=== PATIENT | female | born 1975 | race Caucasian/White ===

== ENCOUNTER 2023-08-24 13:20 | Emergency (ER) | payer BC, SELFPAY ==
[2023-08-24] VITALS (24 sets, daily range): BP systolic 113–193; BP diastolic 61–101; PULSE 60–112; RESP 7–24; TEMP 36.6–36.7; O2SAT 96–100; BMI 32.8
--- NOTE | 2023-08-24 13:23 | PC.NURSE ---
Dr. Sparks at [facility] for pt eval
--- NOTE | 2023-08-24 13:26 | XR_ITS ---
FINAL REPORT CLINICAL HISTORY: pain, deformity, fall in snow FINDINGS: Left knee Two views were obtained. There is a nondisplaced fracture of the proximal fibula. No other fracture or dislocation is identified. No soft tissue abnormality is seen. IMPRESSION: Fracture as above. Reviewed, Interpreted and Dictated by Isidro Clements III, MD Transcribed by Jing Best Authenticated and [facility]
--- NOTE | 2023-08-24 13:26 | XR_ITS ---
FINAL REPORT CLINICAL HISTORY: pain, fall in snow, deformity FINDINGS: Left ankle Two views were obtained. There is a comminuted fracture of the distal fibular diaphysis. There are also nondisplaced fractures of the posterior distal tibia and probable medial malleolus. There is posterior dislocation of the talus and foot at the tibiotalar joint. IMPRESSION: Fractures as above. Reviewed, Interpreted and Dictated by Isidro Clements III, MD Transcribed by Jing Best Authenticated and . [facility]
--- NOTE | 2023-08-24 13:26 | XR_ITS ---
FINAL REPORT CLINICAL HISTORY: pain, deformity FINDINGS: Left foot Two views were obtained. No foot fracture is identified. There are mild degenerative changes. No soft tissue abnormality is identified. IMPRESSION: No acute process. Reviewed, Interpreted and Dictated by Iisdro Clements III, MD Transcribed by Jing Best Authenticated and [facility]
--- NOTE | 2023-08-24 13:26 | XR_ITS ---
FINAL REPORT CLINICAL HISTORY: pain, deformity, fall in snow FINDINGS: Left tibia fibula Two views were obtained. There is a comminuted fracture of the distal fibular diaphysis. There are also nondisplaced fractures of the posterior distal tibia and probable medial malleolus. There is posterior dislocation of the talus and foot at the tibiotalar joint. Nondisplaced fracture of the proximal fibula is also identified. IMPRESSION: Fractures as above. Reviewed, Interpreted and Dictated by Isidro Clements III, MD Transcribed by Jing Best Authenticated and [facility]
[2023-08-24] MEDS: FENTANYL 250MCG/5ML VIAL 100 MCG IV (13:30)
[2023-08-24] MEDS: ONDANSETRON 4MG/2ML VIAL 4 MG IV (13:30)
--- NOTE | 2023-08-24 13:59 | ED_ITS ---
Discharge Plan Disposition Patient Disposition: Home, Self-Care Condition: Good Prescriptions Prescriptions: New oxycodone 5 mg tablet 5 mg PO Q6H PRN (Reason: pain) Qty: 10 0RF Referrals Follow up/Referrals: Willy Quezada DO [Staff Physician] - See instructions Marck Barrera DO [Staff Physician] - See instructions Provider,MD Kassidy [Primary Care Provider] - See instructions Activity Restrictions/Add. Instructions Additional Instructions/Restrictions: Call your family doctor to establish care for this visit to the emergency department and schedule follow-up within 48 hours to ensure improvement. If you have any worsening of your condition or any other concerning signs or symptoms, return to the emergency department or your primary care doctor for further evaluation. Call Dr. Vera's office for further scheduling of surgery. Clinical Impressions Clinical Impression: Closed fracture dislocation of left ankle Stand Alone Forms Stand Alone Forms: Work/School Release Instructions Patient Instructions: DI for Moderate Sedation, Moderate Sedation Discharge ED Provider: Chiki Arellano General Adult HPI <Donald Sparks MD - Last Filed: 08/24/23 17:10> General Chief complaint: Fall Stated complaint: ankle injury Time Seen by Provider: 08/24/23 13:26 Mode of Arrival: Wheelchair Source of Information: Patient and Spouse Limitations: No Limitations Description of Symptoms (Recalled from ER Triage Doc. by RN): pt reports to ED with c/o fall. pt reports she was walking out of her house and slippped on the snow/ice and landed on her ankle wrong. pt reports she looked down and say her ankle twisted out beside of her. History of Present Illness HPI narrative: Patient presents after fall from standing shortly prior to arrival. She slipped on the ice and fell onto her left ankle. She is unsure if she had inversion or eversion injury. She denies any previous ankle injuries. The pain is severe and nonradiating. She denies any numbness or tingling. She denies any pain elsewhere. She denies blood thinner usage. She denies head injury. Related Data Previous Rx's Medication Instructions Recorded oxycodone 5 mg tablet 5 mg PO Q6H PRN pain #10 tabs 08/24/23 Allergies Allergy/AdvReac Type Severity Reaction Status Date / Time Penicillins Allergy Verified 08/24/23 13:46 PFSH <Donald Sparks MD - Last Filed: 08/24/23 17:10> [facility] Disclaimer: The information contained in this section may have been updated after the patient was seen, as this information can be updated by other users. Social History (Updated 08/24/23 @ 16:38 by Chiki Arellano MD) Smoking Status: Current every day smoker alcohol intake: never current occupational status: employed Travel in the last 8 weeks: None <Donald Sparks MD - Last Filed: 08/24/23 17:10> ROS Obtained: Yes Systems reviewed as appropriate & no additional complaints except as documented As per HPI Physical Exam <Donald Sparks MD - Last Filed: 08/24/23 17:10> General General appearance: alert and in no apparent distress Head Head exam: atraumatic and normocephalic Eye Eye exam: Present normal appearance Neck Neck exam: Present normal inspection Chest Chest inspection: Present normal inspection and symmetric chest wall rise Respiratory Respiratory exam: Present normal lung sounds bilaterally; Absent respiratory distress Cardiovascular Cardiovascular exam: Present regular rate and normal rhythm Abdominal Exam Abdominal exam: Present soft Extremities Exam Extremities exam: Present other (Closed injury with deformity and skin tenting to left lower extremity, ankle. Distal sensation and capillary refill, DP pulse intact. No evidence of trauma elsewhere.) Neurological Exam Neurological exam: Present alert and oriented X3 Psychiatric Psychiatric exam: Present normal affect and normal mood Skin Skin exam: Present warm and dry Medical Decision Making <Donald Sparks MD - Last Filed: 08/24/23 17:10> Medical Records Medical records reviewed: Yes I reviewed the patient's medical records. Jimmy Inquiry Pt receiving controlled substance: No Vital Signs: 08/24/23 13:20 08/24/23 14:15 08/24/23 14:31 Temperature 97.9 F Temperature Source Oral Pulse Rate 60 67 Pulse Rate [Left Radial] 62 Respiratory Rate 19 Blood Pressure 113/64 Blood Pressure [Right Arm] 123/71 Blood Pressure Mean 87 Blood Pressure Mean [Right Arm] 88 02 Sat by Pulse Oximetry 100 98 98 Oxygen Delivery Method Room Air Nasal Cannula Oxygen Flow Rate (LPM) 1 08/24/23 15:01 08/24/23 15:15 08/24/23 15:21 Temperature 98.0 F Temperature Source Oral Pulse Rate Pulse Rate [Left Radial] 66 81 104 H Respiratory Rate 12 16 16 Blood Pressure Blood Pressure [Right Arm] 122/76 134/71 179/94 H Blood Pressure Mean Blood Pressure Mean [Right Arm] 91 92 122 02 Sat by Pulse Oximetry 100 99 99 Oxygen Delivery Method Nasal Cannula Nasal Cannula Nasal Cannula Oxygen Flow Rate (LPM) 1 1 1 08/24/23 15:30 08/24/23 15:35 08/24/23 15:41 Temperature Temperature Source Pulse Rate Pulse Rate [Left Radial] 101 H 93 H 89 Respiratory Rate 7 L 13 12 Blood Pressure Blood Pressure [Right Arm] 179/98 H 156/101 H 159/76 H Blood Pressure Mean Blood Pressure Mean [Right Arm] 125 119 103 02 Sat by Pulse Oximetry 98 99 99 Oxygen Delivery Method Nasal Cannula Nasal Cannula Nasal Cannula Oxygen Flow Rate (LPM) 1 1 1 08/24/23 15:48 08/24/23 15:04 08/24/23 15:10 Temperature Temperature Source Pulse Rate 68 73 Pulse Rate [Left Radial] 85 Respiratory Rate 10 L 13 13 Blood Pressure 122/76 132/74 Blood Pressure [Right Arm] 129/76 Blood Pressure Mean Blood Pressure Mean [Right Arm] 93 02 Sat by Pulse Oximetry 99 100 100 Oxygen Delivery Method Room Air Room Air Room Air Oxygen Flow Rate (LPM) 08/24/23 15:14 08/24/23 15:15 08/24/23 15:21 Temperature Temperature Source Pulse Rate 68 80 106 H Pulse Rate [Left Radial] Respiratory Rate 12 13 13 Blood Pressure 134/73 134/71 179/94 H Blood Pressure [Right Arm] Blood Pressure Mean Blood Pressure Mean [Right Arm] 02 Sat by Pulse Oximetry 100 100 99 Oxygen Delivery Method Oxygen Flow Rate (LPM) 08/24/23 15:25 08/24/23 15:30 08/24/23 15:35 Temperature Temperature Source Pulse Rate 112 H 96 H 83 Pulse Rate [Left Radial] Respiratory Rate 13 13 14 Blood Pressure 193/92 H 179/98 H 156/101 H Blood Pressure [Right Arm] Blood Pressure Mean Blood Pressure Mean [Right Arm] 02 Sat by Pulse Oximetry 100 100 99 Oxygen Delivery Method Oxygen Flow Rate (LPM) 08/24/23 15:41 08/24/23 15:47 08/24/23 15:50 Temperature Temperature Source Pulse Rate 92 H 85 79 Pulse Rate [Left Radial] Respiratory Rate 14 12 13 Blood Pressure 159/76 H 129/76 131/81 Blood Pressure [Right Arm] Blood Pressure Mean Blood Pressure Mean [Right Arm] 02 Sat by Pulse Oximetry 99 99 98 Oxygen Delivery Method Oxygen Flow Rate (LPM) 08/24/23 15:55 08/24/23 16:00 08/24/23 16:05 Temperature Temperature Source Pulse Rate 77 74 75 Pulse Rate [Left Radial] Respiratory Rate 13 12 13 Blood Pressure 128/70 135/75 131/72 Blood Pressure [Right Arm] Blood Pressure Mean Blood Pressure Mean [Right Arm] 02 Sat by Pulse Oximetry 100 100 100 Oxygen Delivery Method Oxygen Flow Rate (LPM) 08/24/23 16:11 08/24/23 16:15 08/24/23 16:20 Temperature Temperature Source Pulse Rate 76 78 81 Pulse Rate [Left Radial] Respiratory Rate 16 13 24 Blood Pressure 118/61 126/71 123/67 Blood Pressure [Right Arm] Blood Pressure Mean Blood Pressure Mean [Right Arm] 02 Sat by Pulse Oximetry 100 97 96 Oxygen Delivery Method Oxygen Flow Rate (LPM) 08/24/23 16:25 08/24/23 16:49 Temperature 97.9 F Temperature Source Pulse Rate 86 86 Pulse Rate [Left Radial] Respiratory Rate 15 15 Blood Pressure 130/69 130/69 Blood Pressure [Right Arm] Blood Pressure Mean Blood Pressure Mean [Right Arm] 02 Sat by Pulse Oximetry 99 Oxygen Delivery Method Room Air Oxygen Flow Rate (LPM) Lab Data Lab Results 08/24/23 13:25: WBC 12.4 H, RBC 4.61, Hgb 14.5, Hct 44.5, MCV 96.6, MCH 31.6 H, MCHC 32.7, RDW 13.7, Plt Count 277, MPV 11.7 H, Neut % (Auto) 48.3, Lymph % (Auto) 41.1, [place] % (Auto) 6.1, Eos % (Auto) 3.6, Baso % (Auto) 0.9, Neut # ( Auto) 6.0, Lymph # (Auto) 5.1 H, [place] # (Auto) 0.8, Eos # (Auto) 0.5 H, Baso # (Auto) 0.1, PT 10.2, INR 0.94, Sodium 138, Potassium 3.1 L, Chloride 105, Carbon Dioxide 20 L, Anion Gap 16.1 H, BUN 15, Creatinine 0.90, Estimated Creat Clear 117, Estimated GFR 67, Est GFR ( Amer) 82, Glucose 141 H, Calcium 8.8, Total Bilirubin 0.6, AST 39 H, ALT 32, Alkaline Phosphatase 72, Total Creatine Kinase 255 H, Total Protein 7.4, Albumin 4.4, Globulin 3.0, Albumin/Globulin Ratio 1.5 08/24/23 16:10: Total Creatine Kinase 207 H 08/24/23 13:25 08/24/23 13:25 Orders (Tests/Meds): ED MEDICATIONS Discontinued Medications Generic Name Dose Route Start Last Admin Trade Name Freq PRN Reason Stop Dose Admin Fentanyl Citrate 100 mcg 08/24/23 13:26 08/24/23 13:30 Fentanyl 250mcg/5ml Vial IV 08/24/23 13:27 100 mcg ONCE ONE Administration Ketamine HCl 150 mg 08/24/23 15:14 08/24/23 15:57 Ketamine 500mg/10ml Vial IV 08/24/23 15:15 150 mg ONCE ONE Administration Ondansetron HCl 4 mg 08/24/23 13:26 08/24/23 13:30 Ondansetron 4mg/2ml Vial IV 08/24/23 13:27 4 mg ONCE ONE Administration Propofol 50 mg 08/24/23 15:15 08/24/23 15:56 Propofol 10mg/Ml 20ml Vial IV 08/24/23 15:16 50 mg ONCE ONE Administration ORDERS Category Date Time Status Type and Screen Stat BBK 08/24/23 16:10 Results XR ankle LT 2V Stat Exams 08/24/23 13:26 Completed XR ankle LT min 3V Stat Exams 08/24/23 15:42 Completed XR foot LT 2V Stat Exams 08/24/23 13:26 Completed XR knee LT 2V Stat Exams 08/24/23 13:26 Completed XR tibia fibula LT 2V Stat Exams 08/24/23 13:26 Completed CBC w/Auto Diff [Complete Blood Count Auto Diff] Stat Lab 08/24/23 13:25 Completed CK [Creatine Kinase] Stat Lab 08/24/23 13:25 Completed CK [Creatine Kinase] Stat Lab 08/24/23 16:10 Completed CMP [Comprehensive Metabolic Panel] Stat Lab 08/24/23 13:25 Completed PT INR [Prothrombin Time INR] Stat Lab 08/24/23 13:25 Completed Medical Decision Narrative: Patient with history and exam per above presenting for evaluation of left ankle injury Diagnoses considered include Fracture, soft tissue injury, vascular injury, nerve injury ED workup and treatment included: ED MEDICATIONS Discontinued Medications Generic Name Dose Route Start Last Admin Trade Name Radha PRN Reason Stop Dose Admin Fentanyl Citrate 100 mcg 08/24/23 13:26 08/24/23 13:30 Fentanyl 250mcg/5ml Vial IV 08/24/23 13:27 100 mcg ONCE ONE Administration Ketamine HCl 150 mg 08/24/23 15:14 08/24/23 15:57 Ketamine 500mg/10ml Vial IV 08/24/23 15:15 150 mg ONCE ONE Administration Ondansetron HCl 4 mg 08/24/23 13:26 08/24/23 13:30 Ondansetron 4mg/2ml Vial IV 08/24/23 13:27 4 mg ONCE ONE Administration Propofol 50 mg 08/24/23 15:15 08/24/23 15:56 Propofol 10mg/Ml 20ml Vial IV 08/24/23 15:16 50 mg ONCE ONE Administration ORDERS Category Date Time Status Type and Screen Stat BBK 08/24/23 16:10 Results XR ankle LT 2V Stat Exams 08/24/23 13:26 Completed XR ankle LT min 3V Stat Exams 08/24/23 15:42 Completed XR foot LT 2V Stat Exams 08/24/23 13:26 Completed XR knee LT 2V Stat Exams 08/24/23 13:26 Completed XR tibia fibula LT 2V Stat Exams 08/24/23 13:26 Completed CBC w/Auto Diff [Complete Blood Count Auto Diff] Stat Lab 08/24/23 13:25 Completed CK [Creatine Kinase] Stat Lab 08/24/23 13:25 Completed CK [Creatine Kinase] Stat Lab 08/24/23 16:10 Completed CMP [Comprehensive Metabolic Panel] Stat Lab 08/24/23 13:25 Completed PT INR [Prothrombin Time INR] Stat Lab 08/24/23 13:25 Completed Labs were independently interpreted by me, significant for suspected reactive leukocytosis, mild hypokalemia, initial CK elevated, delta CK pending Imaging was independently visualized and interpreted by me, significant for tibia dislocation and fibular fracture. Please refer to radiology report for full details. I discussed the case with orthopedic surgeon on-call. Patient will likely require operative intervention but recommendation at this time is fracture reduction under procedural sedation, splint, and outpatient follow-up. Procedur al sedation was performed and fracture was reduced without immediate complication. This was performed in conjunction with oncoming physician Dr. Arellano. At this time care was transferred to him Eileen: I assume primary responsibility for this patient after signout from previous physician. On reevaluation, patient neurovascularly intact and pain- free. Repeat x-rays with mild subluxation of tibiotalar joint, but patient without signs of neurovascular compromise. Patient has follow-up with o rthopedics for operative intervention. Because patient at baseline without signs or symptoms of clinical decompensation, deemed appropriate for discharge. Results were relayed to patient who voiced understanding and were agreeable to outpatient management and follow up. At the time of discharge the patient was hemodynamically stable, tolerating PO, and mobilizing appropriately. <Chiki Arellano MD - Last Filed: 08/24/23 16:38> Vital Signs: 08/24/23 13:20 08/24/23 14:15 08/24/23 14:31 Temperature 97.9 F Temperature Source Oral Pulse Rate 60 67 Pulse Rate [Left Radial] 62 Respiratory Rate 19 Blood Pressure 113/64 Blood Pressure [Right Arm] 123/71 Blood Pressure Mean 87 Blood Pressure Mean [Right Arm] 88 02 Sat by Pulse Oximetry 100 98 98 Oxygen Delivery Method Room Air Nasal Cannula Oxygen Flow Rate (LPM) 1 08/24/23 15:01 08/24/23 15:15 08/24/23 15:21 Temperature 98.0 F Temperature Source Oral Pulse Rate Pulse Rate [Left Radial] 66 81 104 H Respiratory Rate 12 16 16 Blood Pressure Blood Pressure [Right Arm] 122/76 134/71 179/94 H Blood Pressure Mean Blood Pressure Mean [Right Arm] 91 92 122 02 Sat by Pulse Oximetry 100 99 99 Oxygen Delivery Method Nasal Cannula Nasal Cannula Nasal Cannula Oxygen Flow Rate (LPM) 1 1 1 08/24/23 15:30 08/24/23 15:35 08/24/23 15:41 Temperature Temperature Source Pulse Rate Pulse Rate [Left Radial] 101 H 93 H 89 Respiratory Rate 7 L 13 12 Blood Pressure Blood Pressure [Right Arm] 179/98 H 156/101 H 159/76 H Blood Pressure Mean Blood Pressure Mean [Right Arm] 125 119 103 02 Sat by Pulse Oximetry 98 99 99 Oxygen Delivery Method Nasal Cannula Nasal Cannula Nasal Cannula Oxygen Flow Rate (LPM) 1 1 1 08/24/23 15:48 08/24/23 15:04 08/24/23 15:10 Temperature Temperature Source Pulse Rate 68 73 Pulse Rate [Left Radial] 85 Respiratory Rate 10 L 13 13 Blood Pressure 122/76 132/74 Blood Pressure [Right Arm] 129/76 Blood Pressure Mean Blood Pressure Mean [Right Arm] 93 02 Sat by Pulse Oximetry 99 100 100 Oxygen Delivery Method Room Air Room Air Room Air Oxygen Flow Rate (LPM) 08/24/23 15:14 08/24/23 15:15 08/24/23 15:21 Temperature Temperature Source Pulse Rate 68 80 106 H Pulse Rate [Left Radial] Respiratory Rate 12 13 13 Blood Pressure 134/73 134/71 179/94 H Blood Pressure [Right Arm] Blood Pressure Mean Blood Pressure Mean [Right Arm] 02 Sat by Pulse Oximetry 100 100 99 Oxygen Delivery Method Oxygen Flow Rate (LPM) 08/24/23 15:25 08/24/23 15:30 08/24/23 15:35 Temperature Temperature Source Pulse Rate 112 H 96 H 83 Pulse Rate [Left Radial] Respiratory Rate 13 13 14 Blood Pressure 193/92 H 179/98 H 156/101 H Blood Pressure [Right Arm] Blood Pressure Mean Blood Pressure Mean [Right Arm] 02 Sat by Pulse Oximetry 100 100 99 Oxygen Delivery Method Oxygen Flow Rate (LPM) 08/24/23 15:41 08/24/23 15:47 08/24/23 15:50 Temperature Temperature Source Pulse Rate 92 H 85 79 Pulse Rate [Left Radial] Respiratory Rate 14 12 13 Blood Pressure 159/76 H 129/76 131/81 Blood Pressure [Right Arm] Blood Pressure Mean Blood Pressure Mean [Right Arm] 02 Sat by Pulse Oximetry 99 99 98 Oxygen Delivery Method Oxygen Flow Rate (LPM) 08/24/23 15:55 08/24/23 16:00 08/24/23 16:05 Temperature Temperature Source Pulse Rate 77 74 75 Pulse Rate [Left Radial] Respiratory Rate 13 12 13 Blood Pressure 128/70 135/75 131/72 Blood Pressure [Right Arm] Blood Pressure Mean Blood Pressure Mean [Right Arm] 02 Sat by Pulse Oximetry 100 100 100 Oxygen Delivery Method Oxygen Flow Rate (LPM) 08/24/23 16:11 08/24/23 16:15 08/24/23 16:20 Temperature Temperature Source Pulse Rate 76 78 81 Pulse Rate [Left Radial] Respiratory Rate 16 13 24 Blood Pressure 118/61 126/71 123/67 Blood Pressure [Right Arm] Blood Pressure Mean Blood Pressure Mean [Right Arm] 02 Sat by Pulse Oximetry 100 97 96 Oxygen Delivery Method Oxygen Flow Rate (LPM) 08/24/23 16:25 08/24/23 16:49 Temperature 97.9 F Temperature Source Pulse Rate 86 86 Pulse Rate [Left Radial] Respiratory Rate 15 15 Blood Pressure 130/69 130/69 Blood Pressure [Right Arm] Blood Pressure Mean Blood Pressure Mean [Right Arm] 02 Sat by Pulse Oximetry 99 Oxygen Delivery Method Room Air Oxygen Flow Rate (LPM) Lab Data Lab Results 08/24/23 13:25: WBC 12.4 H, RBC 4.61, Hgb 14.5, Hct 44.5, MCV 96.6, MCH 31.6 H, MCHC 32.7, RDW 13.7, Plt Count 277, MPV 11.7 H, Neut % (Auto) 48.3, Lymph % (Auto) 41.1, [place] % (Auto) 6.1, Eos % (Auto) 3.6, Baso % (Auto) 0.9, Neut # (Auto) 6.0, Lymph # (Auto) 5.1 H, [place] # (Auto) 0.8, Eos # (Auto) 0.5 H, Baso # (Auto) 0.1, PT 10.2, INR 0.94, Sodium 138, Potassium 3.1 L, Chloride 105, Carbon Dioxide 20 L, Anion Gap 16.1 H, BUN 15, Creatinine 0.90, Estimated Creat Clear 117, Estimated GFR 67, Est GFR ( Amer) 82, Glucose 141 H, Calcium 8.8, Total Bilirubin 0.6, AST 39 H, ALT 32, Alkaline Phosphatase 72, Total Creatine Kinase 255 H, Total Protein 7.4, Albumin 4.4, Globulin 3.0, Albumin/Globulin Ratio 1.5 08/24/23 16:10: Total Creatine Kinase 207 H Orders (Tests/Meds): ED MEDICATIONS Discontinued Medications Generic Name Dose Route Start Last Admin Trade Name Freq PRN Reason Stop Dose Admin Fentanyl Citrate 100 mcg 08/24/23 13:26 08/24/23 13:30 Fentanyl 250mcg/5ml Vial IV 08/24/23 13:27 100 mcg ONCE ONE Administration Ketamine HCl 150 mg 08/24/23 15:14 08/24/23 15:57 Ketamine 500mg/10ml Vial IV 08/24/23 15:15 150 mg ONCE ONE Administration Ondansetron HCl 4 mg 08/24/23 13:26 08/24/23 13:30 Ondansetron 4mg/2ml Vial IV 08/24/23 13:27 4 mg ONCE ONE Administration Propofol 50 mg 08/24/23 15:15 08/24/23 15:56 Propofol 10mg/Ml 20ml Vial IV 08/24/23 15:16 50 mg ONCE ONE Administration ORDERS Category Date Time Status Type and Screen Stat BBK 08/24/23 16:10 Results XR ankle LT 2V Stat Exams 08/24/23 13:26 Completed XR ankle LT min 3V Stat Exams 08/24/23 15:42 Completed XR foot LT 2V Stat Exams 08/24/23 13:26 Completed XR knee LT 2V Stat Exams 08/24/23 13:26 Completed XR tibia fibula LT 2V Stat Exams 08/24/23 13:26 Completed CBC w/Auto Diff [Complete Blood Count Auto Diff] Stat Lab 08/24/23 13:25 Completed CK [Creatine Kinase] Stat Lab 08/24/23 13:25 Completed CK [Creatine Kinase] Stat Lab 08/24/23 16:10 Completed CMP [Comprehensive Metabolic Panel] Stat Lab 08/24/23 13:25 Completed PT INR [Prothrombin Time INR] Stat Lab 08/24/23 13:25 Completed Medical Decision Narrative: Patient with history and exam per above presenting for evaluation of Diagnoses considered include ED workup and treatment included: Labs were independently interpreted by me, significant for Imaging was independently visualized and interpreted by me, significant for . Please refer to radiology report for full details. My clinical impression at this time is most consistent with I discussed my clinical impression with patient and answered all questions. At this time, the evidence for any other entities in the differential is insufficient to warrant any further testing or ED observation. This was explained to the patient. The patient was advised that persistent or worsening symptoms require further evaluation. I confirmed the patient's understanding of this discussion. Eileen: I assume primary responsibility for this patient after signout from previous physician. On reevaluation, patient neurovascularly intact and pain- free. Repeat x-rays with mild subluxation of tibiotalar joint, but patient without signs of neurovascular compromise. Patient has follow-up with orthopedics for operative intervention. Because patient at baseline without signs or symptoms of clinical decompensation, deemed appropriate for discharge. Results were relayed to patient who voiced understanding and were agreeable to outpatient management and follow up. At the time of discharge the patient was hemodynamically stable, tolerating PO, and mobilizing appropriately. Procedures <Donald Sparks MD - Last Filed: 08/24/23 17:10> Orthopedic Fracture Reduction Fracture #1: Time Out Performed: Yes Side: left Fracture Reduction Location: tibia and fibula Analgesia: procedural sedation Technique: direct manipulation and traction/counter-traction Post Reduction X-rays Demonstrate: acceptable reduction Post-reduction neuro exam: intact Post-reduction vascular exam: intact Splint Applied: Yes Patient Tolerated Procedure: well and no complications <Chiki Arellano MD - Last Filed: 08/24/23 16:38> Procedural Sedation A heart and lung assessment was performed on this patient at: 14:00 Mallampati Score:: Class II Indication: fracture/dislocation reduction ASA Class: II Time of Last PO Intake: 12:00 Preparation: cardiac monitor technician applied, pulse oximeter, capnometry used and supplemental O2 applied Ketamine: IM Ketamine dose (mg): 150 IV Propofol dose (mg): 50 Patient Tolerated Procedure: well Complications: none Critical Care <oDnald Sparks MD - Last Filed: 08/24/23 17:10> Critical Care Time Critical Care Time: No
[2023-08-24 14:07] LABS: Chloride 105 mmol/L (98-107); Potassium 3.1 mmoL/L (3.5-5.1); Sodium 138 mmol/L (136-145)
[2023-08-24 14:08] LABS: Basophils # 0.1 K/mm3 (0-0.2); Basophils % 0.9 % (0.1-2.0); Eosinophils # 0.5 K/mm3 (0.0-0.4); Eosinophils % 3.6 % (0.1-12.0); Hematocrit 44.5 % (37.0-47.0); Hemoglobin 14.5 g/dL (12.2-16.2); Lymphocytes # 5.1 K/mm3 (0.7-4.5); Lymphocytes % 41.1 % (10-50); Mean Corpuscular HGB Conc 32.7 g/dL (31.8-35.4); Mean Corpuscular Hemoglobin 31.6 pg (27.0-31.2); Mean Corpuscular Volume 96.6 fl (81-99); Mean Platelet Volume 11.7 fl (7.4-10.4); Monocytes # 0.8 K/mm3 (0.1-1.0); Monocytes % 6.1 % (1.7-9.3); Neutrophils % 48.3 % (37.0-80.0); Platelet Count 277 K/mm3 (142-424); Red Blood Count 4.61 M/mm3 (4.20-5.40); Red Cell Distribution Width 13.7 % (11.5-17.5); White Blood Count 12.4 K/mm3 (4.8-10.8)
--- NOTE | 2023-08-24 14:08 | PC.NURSE ---
Dr. Sparks speaking with Dr. Quezada
[2023-08-24 14:10] LABS: Alanine Aminotransferase 32 U/L (12-78); Albumin Level 4.4 g/dl (3.5-5.0); Albumin/Globulin Ratio 1.5 (1.1-1.8); Alkaline Phosphatase 72 U/L (38-126); Anion Gap 16.1 mEq/L (5-15); Aspartate Amino Transferase 39 U/L (14-36); Bilirubin,Total 0.6 mg/dl (0.2-1.3); Blood Urea Nitrogen 15 mg/dl (7-17); Calcium 8.8 mg/dl (8.4-10.2); Carbon Dioxide 20 mmol/L (22.0-30.0); Creatine Kinase 255 U/L (30-135); Creatinine Clearance Estimated 117 mL/min (50-200); Estimated Glomerular Filt Rate 67 ml/min (>60); GFR (African American) 82 ML/MIN (>60); Glucose 141 mg/dl (74-100); Total Protein,Serum 7.4 g/dl (6.3-8.2)
[2023-08-24 14:14] LABS: INR 0.94 (0.9-1.1); Prothrombin Time 10.2 seconds (10.1-12.5)
--- NOTE | 2023-08-24 15:12 | PC.NURSE ---
Dr. Arellano, Dr. Sparks, Robert Watkins RN, Yemi Wei RN, Elizabeth Briscoe RN, at for procedure
--- NOTE | 2023-08-24 15:21 | PC.NURSE ---
Dr Arellano asked me to pull another 50 of Ketamine.
--- NOTE | 2023-08-24 15:42 | XR_ITS ---
FINAL REPORT CLINICAL HISTORY: Left ankle post reduction COMPARISON: Earlier same day FINDINGS: LEFT ANKLE: Three views of the left ankle were obtained. There has been interval reduction in the posteriorly dislocated talus and foot. Again noted are fractures of the distal fibula and posterior distal talus. There is no soft tissue abnormality. IMPRESSION: Interval reduction dislocated talus and foot. Fractures of the distal fibula and posterior distal talus. Reviewed, Interpreted and Dictated by Isidro Clements III, MD Transcribed by Alida Stein Authenticated and . [facility]
--- NOTE | 2023-08-24 15:52 | PC.NURSE ---
xray at bs
[2023-08-24] MEDS: PROPOFOL 10MG/ML 20ML VIAL 50 MG IV (15:56)
--- NOTE | 2023-08-24 16:30 | PC.NURSE ---
PT ASSISTED TO BR
[2023-08-24 16:31] LABS: Creatine Kinase 207 U/L (30-135)
--- NOTE | 2023-08-27 10:40 | PC.NURSE ---
Accessed pt chart to complete ortho paper
== END 2023-08-24 16:50 | disposition home or self-care (01) ==
PROVIDERS: Emergency Medicine; Emergency Provider Emergency Medicine
DX: F17.200 Nicotine dependence, unspecified, uncomplicated; W01.0XXA Fall on same level from slipping, tripping and stumbling without subsequent striking against object, initial encounter; S82.832A Other fracture of upper and lower end of left fibula, initial encounter for closed fracture; S82.302A Unspecified fracture of lower end of left tibia, initial encounter for closed fracture; S93.315A Dislocation of tarsal joint of left foot, initial encounter
CPT/HCPCS: 27788; 27825; 73560; 73590; 73600; 73610; 73620; 80053; 82550; 85025; 85610; 86850; 96374; 96375; 99152; 99285; J2405

== ENCOUNTER 2023-09-05 10:55 | Day surgery (SDC) | payer BC, SELFPAY ==
[2023-09-03 13:13] VITALS: BMI 33.2
[2023-09-05] VITALS (10 sets, daily range): BP systolic 122–159; BP diastolic 60–97; PULSE 68–85; RESP 12–18; TEMP 36.4–43; O2SAT 97–100
[2023-09-05] MEDS: LACTATED RINGERS 1000ML 1,000 ML 25 ML IV (12:23)
[2023-09-05 12:50] LABS: Chloride 107 mmol/L (98-107); Potassium 4.4 mmoL/L (3.5-5.1); Sodium 139 mmol/L (136-145)
[2023-09-05 12:53] LABS: Anion Gap 12.4 mEq/L (5-15); Blood Urea Nitrogen 15 mg/dl (7-17); Calcium 9.3 mg/dl (8.4-10.2); Carbon Dioxide 24 mmol/L (22.0-30.0); Creatinine Clearance Estimated 119 mL/min (50-200); Estimated Glomerular Filt Rate 67 ml/min (>60); GFR (African American) 82 ML/MIN (>60); Glucose 105 mg/dl (74-100)
--- NOTE | 2023-09-05 12:54 | ECG_ITS ---
APPROVED REPORT Exam: Resting ECG HR:56 bpm ECG Measurements Heart Rate 56 AXES MD 164 P 15 QRSd 90 QRS 24 QT 439 T 18 QTc 431 Conclusion SINUS BRADYCARDIA BORDERLINE ECG UNCONFIRMED REPORT Electronically signed by : Martín Henson MD 09/05/2023 22:38:30
[2023-09-05 13:08] LABS: Urine Pregnancy, HCG Qual. Negative (Negative)
--- NOTE | 2023-09-05 13:16 | P.PNANES_ITS ---
[facility] Disclaimer: The information contained in this section may have been updated after the patient was seen, as this information can be updated by other users. Medical History Anxiety Depression Hyperlipidemia Surgical History No significant past surgical history Family History Other Family history of acute congestive heart failure Family history of cancer Family history of diabetes mellitus type II Social History Smoking Status: Former smoker alcohol intake: current substance use type: denies use current occupational status: unemployed Travel in the last 8 weeks: None [facility] Anesthesia Checklist Patient Identification Patient Identification: Arm Band Structural Data Admitted From: Home Planned Operative Procedure/s: ORIF Left Ankle Consent for Planned Operative Procedure(s) Verified: Yes Verified Documents: Surgical Consent and History and Physical NPO Status Verified Time NPO: 00:00 Additional verifications Anesthesia Reactions: No Hx Blood Transfusions: No Blood Transfusion Reaction: No Airway Assessment Mallampati Score:: Class II C-Spine Mobility Assessed: Yes TMJ Mobility Assessed: Yes Dentition: Good Dentition Neurological Assessment Level of Consciousness: Awake and Alert Anesthesia Plan Anesthesia Risk discussed: Yes Anesthesia Plan: Verified ASA Class: II Anesthesia Type: General w/block (Left Popliteal/Adductor Canal. Risks/benefits explained. Pt verbalized understanding)
[2023-09-05] MEDS: CLINDAMYCIN PHOSPHATE 900 MG in 0.9 % SODIUM CHLORIDE 50 ML 50 MG IV (15:30)
--- NOTE | 2023-09-05 17:02 | XR_ITS ---
PROCEDURE INFORMATION: Exam: XR Left Ankle Exam date and time: 09/05/2023 5:00 PM Age: 47 years old Clinical indication: Device placement; Joint fixation hardware; Additional info: Orif lt ankle in or TECHNIQUE: Imaging protocol: Radiologic exam of the left ankle. Views: 1 or 2 views. COMPARISON: CR XR ANKLE LT MIN 3V 08/24/2023 3:44 PM FINDINGS: Bones/joints: Surgical fixation hardware in the distal fibula noted. No hardware-related complication noted. Fracture alignment is now near anatomic. Soft tissues: Normal. IMPRESSION: 1. Surgical fixation hardware in the distal fibula noted. No hardware-related complication noted. 2. Fracture alignment is now near anatomic.
--- NOTE | 2023-09-05 17:44 | EXP.OP.NOTE ---
Date of procedure: 09/05/23 Pre-op Diagnosis:: Left ankle bimalleolar ankle fracture with syndesmotic tear (posterior malleolus and lateral malleolus) Post-op Diagnosis:: Same Procedure performed:: Left ankle open reduction internal fixation left bimalleolar ankle fracture without fixation of the posterior malleolus Left ankle syndesmotic repair Surgeon:: Willy Quezada DO Anesthesia: GETA and regional Estimated blood loss (mL): 0 Clinical Note:: Implants Arthrex one third tubular plate with tight rope Operative findings:: See dictation Operative note:: Patient was identified preoperatively left ankle marked with yes and my initials. Underwent a block with anesthesia. Taken the operating suite placed upon the operating bed. General anesthesia ministered airway secured. Left lower extremity was prepped and draped normal sterile fashion. Once prepped and draped final operative timeout performed to identify proper patient procedure and extremity. Everyone involved in the case agreed. There were no counter indications to beginning. Did receive preoperative antibiotics. Marking pen was used to josue the planned incision over the lateral ankle which was identified on the C arm. At the fracture site Esmarch was used to exsanguinate the extremity and pneumatic tourniquet was inflated to 300 mmHg. Skin knife was used incise through skin careful dissection was taken down to identify the fracture site and the hematoma was evacuated. There is a comminuted fracture at the junction of the distal one third middle one third of the fibula. This was a transverse fracture with a butterfly fragment no lag screw was able to be held so pulmonary reduction was performed with a lobster claw and held with a K wire. Plate was selected from the Arthrex one third tubular plate and placed on the bone. Cortical screws were placed proximally and distally. A hole was left distally for future placement of the tight rope. Reduction was confirmed on the AP and lateral views and found to be good. Then I stressed the syndesmosis and there was indeed tearing and widening and syndesmosis therefore the guidewire and the cannulated drill was utilized to pass the tight rope mechanism from the fibula into the tibia for cortexes. Under direct visualization on the x-ray I tighten the tight rope mechanism by sequentially pulling on the tight rope. Once good reduction was performed there is limbs of the string were cut. I then evaluated the ankle for stability flexion extension and also reviewed the x-ray on the lateral view to establish any need for intervention on the posterior malleolus fragment. The posterior malleolar fragment involves less than 20% of the joint and was stable with flexion extension and no ankle instability was noted. Irrigation of the wounds performed deep layers closed with 0 Vicryl subcutaneous 2-0 Vicryl 3-0 nylon the skin sterile dressing placed with a well-padded posterior splint. Patient waken anesthesia taken recovery stable condition. Condition: stable Disposition: PACU Complications:: None apparent
--- NOTE | 2023-09-05 18:01 | P.PNANES_ITS ---
[facility] Anesthesia Record Part I Anesthesia Record I Intake, IV Amount: 1,600 Hydration: Adequate Estimated blood loss (mL): 25 Urine output (mL): 0 Blood Products used (#): none Blood Pressure: 146/96 SaO2: 98 Pulse Rate: 77 Airway Patency: Patent Respiratory Rate: 17 Temperature: 97.7 F Patient is:: Awake (Talking) and Stable Stable to PACU at:: 17:45
--- NOTE | 2023-09-06 15:08 | P.PNANES_ITS ---
[facility] Anesthesia Record Part II Anesthesia Record Part II Discharge Time: 18:09 Destination: Surgical Day Care (OP Surgery) PACU nurse assessment reviewed?: Yes Patient Condition:: Good Anesthesia Complications:: None Swallowing reflex intact?: Yes Airway Patency: Patent Cyanosis?: No Blood Pressure: 141/81 SaO2: 100 Respiratory Rate: 16 Pulse Rate: 73 Temperature: 98.1 F Mental Status: Alert & Oriented Pain level:: 0 Nausea and/or vomitting:: None Intake, IV Amount: 0 Hydration: Adequate
[2023-09-06 15:09] VITALS: BP 141/81; PULSE 73; RESP 16; TEMP 36.7; O2SAT 100
== END 2023-09-05 18:23 | disposition home or self-care (01) ==
PROVIDERS: Visit Provider Orthopaedic Surgery
PROC: (CPT 27814; principal; 2023-09-05 12:45)
DX: S82.842A Displaced bimalleolar fracture of left lower leg, initial encounter for closed fracture (principal); W00.0XXA Fall on same level due to ice and snow, initial encounter
CPT/HCPCS: 27814; 27829; 73600; 76000; 80048; 81025; 93005; 96372; 96374; C1713; C1776; J0736; J2405

== ENCOUNTER 2023-09-20 13:01 | Outpatient (CLI) | payer BC, SELFPAY ==
--- NOTE | 2023-09-20 13:05 | XR_ITS ---
FINAL REPORT CLINICAL HISTORY: left ankle sx COMPARISON: 08/24/2023 FINDINGS: LEFT ANKLE: Three views of the left ankle were obtained. There are interval postoperative changes from ORIF. There is screw plate and screws in the distal fibula. There is improved alignment of the fracture fragments. There has been interval reduction of the tibiotalar dislocation. There is soft tissue swelling. IMPRESSION: Postoperative changes as above. Soft tissue swelling. Reviewed, Interpreted and Dictated by Isidro Clements III, MD Transcribed by Alida Stein Authenticated and [facility]
== END 2023-09-20 23:59 ==
PROVIDERS: Visit Provider Orthopaedic Surgery
DX: S82.892A Other fracture of left lower leg, initial encounter for closed fracture (principal)
CPT/HCPCS: 73610

== ENCOUNTER 2023-10-16 13:38 | Outpatient (CLI) | payer SELFPAY ==
--- NOTE | 2023-10-16 13:44 | XR_ITS ---
FINAL REPORT CLINICAL HISTORY: Lt ankle fx COMPARISON: 08/23/2023 FINDINGS: Left ankle Three views were obtained. There has been interval ORIF of the fibula. Screw plate and multiple screws are present. There is a comminuted fracture of the distal fibula. IMPRESSION: Fracture as above. Reviewed, Interpreted and Dictated by Isidro Clements III, MD Transcribed by Jing Best Authenticated and [facility]
== END 2023-10-16 23:59 ==
LOC: RAD 13:39
PROVIDERS: PCP Physician Assistant; Visit Provider Orthopaedic Surgery
DX: S82.892A Other fracture of left lower leg, initial encounter for closed fracture (principal)
CPT/HCPCS: 73610

== ENCOUNTER 2023-11-13 12:43 | Outpatient (CLI) | payer SELFPAY ==
--- NOTE | 2023-11-13 12:52 | XR_ITS ---
FINAL REPORT CLINICAL HISTORY: lt ankle pain COMPARISON: 10/16/2023 FINDINGS: Left ankle Three views were obtained. There are postoperative changes of the distal tibia and fibula. There is a nondisplaced fracture of the distal fibula. Mild degenerative changes are present. There is soft tissue swelling about the ankle. Findings are stable since previous. IMPRESSION: Postsurgical changes, stable since previous. Reviewed, Interpreted and Dictated by Isidro Clements III, MD Transcribed by Jing Best Authenticated and . [facility]
== END 2023-11-13 23:59 ==
LOC: RAD 12:44
PROVIDERS: PCP Physician Assistant; Visit Provider Orthopaedic Surgery
DX: M25.572 Pain in left ankle and joints of left foot (principal); S82.892A Other fracture of left lower leg, initial encounter for closed fracture
CPT/HCPCS: 73610

== ENCOUNTER 2024-06-14 10:58 | Inpatient (IN) | payer OTHER, SELFPAY ==
[2024-06-14] VITALS (18 sets, daily range): BP systolic 133–153; BP diastolic 75–94; PULSE 80–123; RESP 16–18; TEMP 36.8–37.7; O2SAT 92–99; BMI 35.2
[2024-06-14 11:32] LABS: Basophils # 0.1 K/mm3 (0-0.2); Basophils % 0.5 % (0.1-2.0); Eosinophils # 0.1 K/mm3 (0.0-0.4); Eosinophils % 0.5 % (0.1-12.0); Hematocrit 44.3 % (37.0-47.0); Hemoglobin 15.2 g/dL (12.2-16.2); Lymphocytes # 1.6 K/mm3 (0.7-4.5); Lymphocytes % 6.7 % (10-50); Mean Corpuscular HGB Conc 34.4 g/dL (31.8-35.4); Mean Corpuscular Hemoglobin 30.4 pg (27.0-31.2); Mean Corpuscular Volume 88.3 fl (81-99); Mean Platelet Volume 11.8 fl (7.4-10.4); Monocytes # 1.2 K/mm3 (0.1-1.0); Monocytes % 5.1 % (1.7-9.3); Neutrophils # 20.4 K/mm3 (1.8-7.8); Neutrophils % 87.2 % (37.0-80.0); Platelet Count 236 K/mm3 (142-424); Red Blood Count 5.01 M/mm3 (4.20-5.40); Red Cell Distribution Width 14.5 % (11.5-17.5); White Blood Count 23.3 K/mm3 (4.8-10.8)
[2024-06-14 11:34] LABS: MANUAL DIFFERENTIAL MANUAL DIFFERENTIAL (MANUAL DIFF)
--- NOTE | 2024-06-14 11:37 | [facility].EDGENADL ---
Discharge Plan Disposition Patient Disposition: Admitted Chief Complaint: Abdominal Pain Prescriptions Prescriptions: No Action oxycodone-acetaminophen 5-325 mg tablet 1 tab PO Q6H PRN (Reason: fracture pain) Qty: 36 0RF divalproex 250 mg tablet,delayed release (DR/EC) 250 mg PO BID meclizine 25 mg tablet 25 mg PO Q8H PRN (Reason: vertigo') pantoprazole 40 mg tablet,delayed release (DR/EC) 40 mg PO DAILY escitalopram oxalate 20 mg tablet 20 mg PO DAILY rosuvastatin 10 mg tablet 10 mg PO DAILY hydrocodone-acetaminophen 5-325 mg tablet 1 tab PO Q4H PRN (Reason: post op pain) Qty: 42 0RF Clinical Impressions Clinical Impression: Left tubo-ovarian abscess, Torsion of left ovary Print Language Print Language: Italian Discharge ED Provider: Chiki Arellano General Adult HPI <Hodan Canales MD - Last Filed: 06/14/24 16:09> General Chief complaint: Abdominal Pain Stated complaint: vomiting, abd pain Time Seen by Provider: 06/14/24 11:32 Mode of Arrival: Ambulatory Source of Information: Patient Limitations: No Limitations Description of Symptoms (Recalled from ER Triage Doc. by RN): pt c/o LLQ, RLQ and L groin pain x3d. pt states the pain is worse in her L groin. pt states the pain is severe 10/10 and cramping in nature. pt also c/o N/V/D. pts LMP was 04/20/24, pt states this is typical for her because she has an IUD. pt has a hx of diverticulitis and states this feels the same. pt has been unable to tolerate PO x2d History of Present Illness HPI narrative: Patient is a 48-year-old with past medical history of GERD presents to the emergency department with nausea vomiting and left lower quadrant pain. Pain is 10 out of 10 left lower quadrant similar to the last time she had diverticulitis. Patient last had a stool 24 hours ago. No blood in stool or urine. No dysuria. Patient has vomited 8 times in the last 24 hours nonbloody nonbilious. Has not taken any [id number] nausea vomiting medicine. Patient has been peeing less than normal. No fever or chills. No known sick contacts no chest pain shortness of breath cough congestion. Related Data Home Medications ?Medication ?Instructions ?Recorded ?Confirmed divalproex 250 mg tablet,delayed 250 mg PO BID 09/03/23 11/13/23 release escitalopram oxalate 20 mg tablet 20 mg PO DAILY 09/03/23 11/13/23 meclizine 25 mg tablet 25 mg PO Q8H PRN vertigo' 09/03/23 11/13/23 pantoprazole 40 mg tablet,delayed 40 mg PO DAILY 09/03/23 11/13/23 release rosuvastatin 10 mg tablet 10 mg PO DAILY 09/03/23 11/13/23 Previous Rx's ?Medication ?Instructions ?Recorded oxycodone-acetaminophen 5 mg-325 1 tab PO Q6H PRN fracture pain #36 08/28/23 mg tablet tabs hydrocodone 5 mg-acetaminophen 325 1 tab PO Q4H PRN post op pain #42 09/05/23 mg tablet tabs Allergies Allergy/AdvReac Type Severity Reaction Status Date / Time Penicillins Allergy Other Verified 06/14/24 11:21 [facility] <Hodan Canales MD - Last Filed: 06/14/24 16:09> PFS Disclaimer: The information contained in this section may have been updated after the patient was seen, as this information can be updated by other users. Medical History Anxiety Depression Hyperlipidemia Surgical History No significant past surgical history Family History Other Family history of acute congestive heart failure Family history of cancer Family history of diabetes mellitus type II Social History Smoking Status: Never smoker alcohol intake: current substance use type: denies use current occupational status: unemployed Travel in the last 8 weeks: None <Hodan Canales MD - Last Filed: 06/14/24 16:09> ROS Obtained: Yes All systems reviewed & no additional complaints except as documented Physical Exam <Hodan Canales MD - Last Filed: 06/14/24 16:09> General General appearance: alert Comment: Uncomfortable but in no acute distress Head Head exam: atraumatic and normal inspection Eye Eye exam: Present PERRL; Absent EOMI ENT ENT exam: Present mucous membranes dry Neck Neck exam: Present normal inspection and full ROM Chest Chest inspection: Present normal inspection Respiratory Respiratory exam: Absent respiratory distress or accessory muscle use Cardiovascular Cardiovascular exam: Present tachycardia Abdominal Exam Abdominal exam: Present soft, tenderness (Tenderness left lower quadrant with associated guarding) and guarding Comment: No flank pain Extremities Exam Extremities exam: Present normal capillary refill (Delayed capillary refill) Back Exam Back exam: Present normal inspection; Absent tenderness Neurological Exam Neurological exam: Present alert and oriented X3 Skin Skin exam: Present warm; Absent erythema Medical Decision Making <Hodan Canales MD - Last Filed: 06/14/24 16:09> Medical Records Screening: Per USPSTF and CDC recommendations, given the prevalence of disease in our region, it is our hospital?s policy to screen for HIV and viral Hepatitis for all patients aged 18 and over and those with ongoing risk factors. Jimmy Inquiry Pt receiving controlled substance: No Vital Signs: 06/14/24 11:06 06/14/24 11:10 06/14/24 11:30 Temperature 98.4 F Temperature Source Oral Pulse Rate 123 H 107 H Pulse Rate [Left] 111 H Respiratory Rate 18 Blood Pressure 135/81 153/91 H Blood Pressure [Right Arm] 135/81 Blood Pressure Mean [Right Arm] 99 Blood Pressure Source [Right Arm] Automatic Cuff Blood Pressure Position [Right Arm] Sitting 02 Sat by Pulse Oximetry 97 97 96 Oxygen Delivery Method Room Air 06/14/24 12:00 06/14/24 12:30 06/14/24 13:00 Temperature Temperature Source Pulse Rate 97 H 85 85 Pulse Rate [Left] Respiratory Rate Blood Pressure 146/92 H 134/78 133/81 Blood Pressure [Right Arm] Blood Pressure Mean [Right Arm] Blood Pressure Source [Right Arm] Blood Pressure Position [Right Arm] 02 Sat by Pulse Oximetry 95 94 L 95 Oxygen Delivery Method Room Air 06/14/24 13:30 06/14/24 14:01 06/14/24 14:30 Temperature Temperature Source Pulse Rate 92 H 85 82 Pulse Rate [Left] Respiratory Rate Blood Pressure 151/81 H 146/87 H 151/94 H Blood Pressure [Right Arm] Blood Pressure Mean [Right Arm] Blood Pressure Source [Right Arm] Blood Pressure Position [Right Arm] 02 Sat by Pulse Oximetry 98 96 98 Oxygen Delivery Method Room Air 06/14/24 15:00 06/14/24 15:30 06/14/24 16:00 Temperature Temperature Source Pulse Rate 80 94 H 94 H Pulse Rate [Left] Respiratory Rate Blood Pressure 142/81 H 150/88 H 140/78 Blood Pressure [Right Arm] Blood Pressure Mean [Right Arm] Blood Pressure Source [Right Arm] Blood Pressure Position [Right Arm] 02 Sat by Pulse Oximetry 97 98 99 Oxygen Delivery Method Room Air Room Air Room Air 06/14/24 16:30 06/14/24 17:00 Temperature Temperature Source Pulse Rate 84 85 Pulse Rate [Left] Respiratory Rate Blood Pressure 137/75 138/83 Blood Pressure [Right Arm] Blood Pressure Mean [Right Arm] Blood Pressure Source [Right Arm] Blood Pressure Position [Right Arm] 02 Sat by Pulse Oximetry 95 98 Oxygen Delivery Method Room Air Room Air Lab Data Lab Results 06/14/24 11:02: Urine Color Yellow, Urine Appearance Clear, Urine pH 6.0, Ur Specific [place] >= 1.030, Urine Protein 2+ A, Urine Glucose (UA) Negative, Urine Ketones 1+, Urine Blood 2+ A, Urine Nitrate Negative, Urine Bilirubin Negative, Urine Urobilinogen 1.0, Ur Leukocyte Esterase 1+ A, Urine RBC 5-10, Urine WBC 3-5, Ur Squamous Epith Cells 3-5 06/14/24 11:19: WBC 23.3 H*, RBC 5.01, Hgb 15.2, Hct 44.3, MCV 88.3, MCH 30.4, MCHC 34.4, RDW 14.5, Plt Count 236, MPV 11.8 H, Neut % (Auto) 87.2 H, Lymph % (Auto) 6.7 L, [place] % (Auto) 5.1, Eos % (Auto) 0.5, Baso % (Auto) 0.5, Neut # (Auto) 20.4 H, Lymph # (Auto) 1.6, [place] # (Auto) 1.2 H, Eos # (Auto) 0.1, Baso # (Auto) 0.1, Total Counted 100, Neutrophils % (Manual) 88 H, Lymphocytes % (Manual) 7 L, Monocytes % (Manual) 5, Platelet Estimate Normal, RBC Morphology Normal, Sodium 136, Potassium 4.0, Chloride 105, Carbon Dioxide 18 L, Anion Gap 17.0 H, BUN 12, Creatinine 0.90, Estimated Creat Clear 125, Estimated GFR 67, Est GFR ( Amer) 81, Glucose 193 H, Lactate 1.5, Calcium 9.4, Total Bilirubin 1.3, AST 39 H, ALT 48, Alkaline Phosphatase 114, Total Protein 9.5 H D, Albumin 4.7, Globulin 4.8 H, Albumin/Globulin Ratio 1.0 L, Lipase 57, Serum HCG, Qual Negative, HIV 1&2 Antibody Rapid Nonreactive 06/14/24 11:50: SARS-CoV-2 (PCR) Not detected, Influenza A Untype (PCR) Not detected, Influenza Type B (PCR) Not detected 06/14/24 11:19 06/14/24 11:19 Orders (Tests/Meds): ED MEDICATIONS Generic Name Dose Route Start Last Admin Trade Name Freq PRN Reason Stop Dose Admin Sodium Chloride 10 ml 06/14/24 11:21 06/14/24 18:08 Sodium Chloride 0.9% 10ml Flush Syringe IV 07/14/24 11:20 10 ml NEEDED PRN Administration Maintain IV Site Discontinued Medications Generic Name Dose Route Start Last Admin Trade Name Freq PRN Reason Stop Dose Admin Hydromorphone HCl 0.5 mg 06/14/24 18:05 06/14/24 18:07 Hydromorphone 2mg/Ml Syringe IV 06/14/24 18:06 0.5 mg ONCE ONE Administration Piperacillin Sod/Tazobactam 100 mls @ 200 mls/hr 06/14/24 11:46 06/14/24 12:00 Sod 4.5 gm/ Sodium Chloride IV 06/14/24 12:15 200 mls/hr ONCE ONE Administration Sodium Chloride 3,060 mls @ 1,530 mls/hr 06/14/24 11:56 06/14/24 12:17 Sod Chlor 0.9% 1000ml Bag IV 06/14/24 13:55 1,530 mls/hr .Q2H ONE Administration Iopamidol 75 ml 06/14/24 15:24 06/14/24 15:24 Iopamidol-370 (76%);100ml Bottle IV 06/14/24 15:25 75 ml ONCE ONE Administration Morphine Sulfate 4 mg 06/14/24 11:38 06/14/24 11:44 Morphine 4mg/Ml Syringe IV 06/14/24 11:39 4 mg ONCE ONE Administration Ondansetron HCl 4 mg 06/14/24 11:38 06/14/24 11:44 Ondansetron 4mg/2ml Vial IV 06/14/24 11:39 4 mg ONCE ONE Administration Sodium Chloride 10 ml 06/14/24 15:24 06/14/24 15:24 Sodium Chloride 0.9% 10ml Syr (Rad Only) IV 06/14/24 15:25 10 ml ONCE ONE Administration ORDERS Category Date Time Status CT abdomen pelvis w con Stat Cat Scan 06/14/24 11:39 Completed US transvaginal Stat Exams 06/14/24 16:39 Taken Complete Blood Count Auto Diff Stat Lab 06/14/24 11:19 Completed Comprehensive Metabolic Panel Stat Lab 06/14/24 11:19 Completed HCG Qualitative, Serum Stat Lab 06/14/24 11:19 Completed HIV (1&2) Antibody Rapid Stat Lab 06/14/24 11:19 Completed Hep C Ab with Reflex to RNA Stat Lab 06/14/24 11:19 Received Lactic Acid Stat Lab 06/14/24 11:19 Completed Lipase Stat Lab 06/14/24 11:19 Completed Rapid PCR Covid and Flu A/B Stat Lab 06/14/24 11:50 Completed Trichomonas Vaginalis, ASHKAN Stat Lab 06/14/24 11:02 Received UA [Urinalysis and Microscopic] Stat Lab 06/14/24 11:02 Completed Blood Culture Stat Micro 06/14/24 11:56 Received Urine Culture Stat Micro 06/14/24 11:02 Received Medical Decision Narrative: In summary, this 48-year-old female presents to the emergency department today with left lower quadrant pain nausea vomiting. On initial evaluation patient is tachycardic in pain but no acute distress afebrile saturating appropriately on room air. Differential diagnosis includes but is not limited to diverticulitis intra-abdominal abscess urolithiasis pyelonephritis urinary tract infection tubo-ovarian abscess. Based on these concerns, I ordered CBC with differential, CMP, lipase test nasopharyngeal respiratory swab COVID flu lactate EKG CT abdomen pelvis UA blood culture. ECG personally interpreted demonstrates sinus tachycardia no ST elevation ST depression or T wave inversions concerning for ischemia normal axis. Patient received 30 cc/kg fluid bolus morphine and Zofran for treatment. Zosyn started in the setting of abdominal pain tachycardia and leukocytosis Labs personally reviewed demonstrate leukocytosis bicarb of 18 lactate of 1.5. UA with Hematuria pyuria nitrate negative CT imaging personally interpreted demonstrate mesenteric stranding in the left lower quadrant On reassessment patient has resolution of vomiting and improvement of pain after 4 mg morphine. At 4 PM transfer of care given to Dr. Arellano to follow up final CT read and disposition <Chiki Arellano MD - Last Filed: 06/14/24 18:58> Vital Signs: 06/14/24 11:06 06/14/24 11:10 06/14/24 11:30 Temperature 98.4 F Temperature Source Oral Pulse Rate 123 H 107 H Pulse Rate [Left] 111 H Respiratory Rate 18 Blood Pressure 135/81 153/91 H Blood Pressure [Right Arm] 135/81 Blood Pressure Mean [Right Arm] 99 Blood Pressure Source [Right Arm] Automatic Cuff Blood Pressure Position [Right Arm] Sitting 02 Sat by Pulse Oximetry 97 97 96 Oxygen Delivery Method Room Air 06/14/24 12:00 06/14/24 12:30 06/14/24 13:00 Temperature Temperature Source Pulse Rate 97 H 85 85 Pulse Rate [Left] Respiratory Rate Blood Pressure 146/92 H 134/78 133/81 Blood Pressure [Right Arm] Blood Pressure Mean [Right Arm] Blood Pressure Source [Right Arm] Blood Pressure Position [Right Arm] 02 Sat by Pulse Oximetry 95 94 L 95 Oxygen Delivery Method Room Air 06/14/24 13:30 06/14/24 14:01 06/14/24 14:30 Temperature Temperature Source Pulse Rate 92 H 85 82 Pulse Rate [Left] Respiratory Rate Blood Pressure 151/81 H 146/87 H 151/94 H Blood Pressure [Right Arm] Blood Pressure Mean [Right Arm] Blood Pressure Source [Right Arm] Blood Pressure Position [Right Arm] 02 Sat by Pulse Oximetry 98 96 98 Oxygen Delivery Method Room Air 06/14/24 15:00 06/14/24 15:30 06/14/24 16:00 Temperature Temperature Source Pulse Rate 80 94 H 94 H Pulse Rate [Left] Respiratory Rate Blood Pressure 142/81 H 150/88 H 140/78 Blood Pressure [Right Arm] Blood Pressure Mean [Right Arm] Blood Pressure Source [Right Arm] Blood Pressure Position [Right Arm] 02 Sat by Pulse Oximetry 97 98 99 Oxygen Delivery Method Room Air Room Air Room Air 06/14/24 16:30 06/14/24 17:00 Temperature Temperature Source Pulse Rate 84 85 Pulse Rate [Left] Respiratory Rate Blood Pressure 137/75 138/83 Blood Pressure [Right Arm] Blood Pressure Mean [Right Arm] Blood Pressure Source [Right Arm] Blood Pressure Position [Right Arm] 02 Sat by Pulse Oximetry 95 98 Oxygen Delivery Method Room Air Room Air Lab Data Lab Results 06/14/24 11:02: Urine Color Yellow, Urine Appearance Clear, Urine pH 6.0, Ur Specific [place] >= 1.030, Urine Protein 2+ A, Urine Glucose (UA) Negative, Urine Ketones 1+, Urine Blood 2+ A, Urine Nitrate Negative, Urine Bilirubin Negative, Urine Urobilinogen 1.0, Ur Leukocyte Esterase 1+ A, Urine RBC 5-10, Urine WBC 3-5, Ur Squamous Epith Cells 3-5 06/14/24 11:19: WBC 23.3 H*, RBC 5.01, Hgb 15.2, Hct 44.3, MCV 88.3, MCH 30.4, MCHC 34.4, RDW 14.5, Plt Count 236, MPV 11.8 H, Neut % (Auto) 87.2 H, Lymph % (Auto) 6.7 L, [place] % (Auto) 5.1, Eos % (Auto) 0.5, Baso % (Auto) 0.5, Neut # (Auto) 20.4 H, Lymph # (Auto) 1.6, [place] # (Auto) 1.2 H, Eos # (Auto) 0.1, Baso # (Auto) 0.1, Total Counted 100, Neutrophils % (Manual) 88 H, Lymphocytes % (Manual) 7 L, Monocytes % (Manual) 5, Platelet Estimate Normal, RBC Morphology Normal, Sodium 136, Potassium 4.0, Chloride 105, Carbon Dioxide 18 L, Anion Gap 17.0 H, BUN 12, Creatinine 0.90, Estimated Creat Clear 125, Estimated GFR 67, Est GFR ( Amer) 81, Glucose 193 H, Lactate 1.5, Calcium 9.4, Total Bilirubin 1.3, AST 39 H, ALT 48, Alkaline Phosphatase 114, Total Protein 9.5 H D, Albumin 4.7, Globulin 4.8 H, Albumin/Globulin Ratio 1.0 L, Lipase 57, Serum HCG, Qual Negative, HIV 1&2 Antibody Rapid Nonreactive 06/14/24 11:50: SARS-CoV-2 (PCR) Not detected, Influenza A Untype (PCR) Not detected, Influenza Type B (PCR) Not detected Orders (Tests/Meds): ED MEDICATIONS Generic Name Dose Route Start Last Admin Trade Name Freq PRN Reason Stop Dose Admin Sodium Chloride 10 ml 06/14/24 11:21 06/14/24 18:08 Sodium Chloride 0.9% 10ml Flush Syringe IV 07/14/24 11:20 10 ml NEEDED PRN Administration Maintain IV Site Discontinued Medications Generic Name Dose Route Start Last Admin Trade Name Freq PRN Reason Stop Dose Admin Hydromorphone HCl 0.5 mg 06/14/24 18:05 06/14/24 18:07 Hydromorphone 2mg/Ml Syringe IV 06/14/24 18:06 0.5 mg ONCE ONE Administration Piperacillin Sod/Tazobactam 100 mls @ 200 mls/hr 06/14/24 11:46 06/14/24 12:00 Sod 4.5 gm/ Sodium Chloride IV 06/14/24 12:15 200 mls/hr ONCE ONE Administration Sodium Chloride 3,060 mls @ 1,530 mls/hr 06/14/24 11:56 06/14/24 12:17 Sod Chlor 0.9% 1000ml Bag IV 06/14/24 13:55 1,530 mls/hr .Q2H ONE Administration Iopamidol 75 ml 06/14/24 15:24 06/14/24 15:24 Iopamidol-370 (76%);100ml Bottle IV 06/14/24 15:25 75 ml ONCE ONE Administration Morphine Sulfate 4 mg 06/14/24 11:38 06/14/24 11:44 Morphine 4mg/Ml Syringe IV 06/14/24 11:39 4 mg ONCE ONE Administration Ondansetron HCl 4 mg 06/14/24 11:38 06/14/24 11:44 Ondansetron 4mg/2ml Vial IV 06/14/24 11:39 4 mg ONCE ONE Administration Sodium Chloride 10 ml 06/14/24 15:24 06/14/24 15:24 Sodium Chloride 0.9% 10ml Syr (Rad Only) IV 06/14/24 15:25 10 ml ONCE ONE Administration ORDERS Category Date Time Status CT abdomen pelvis w con Stat Cat Scan 06/14/24 11:39 Completed US transvaginal Stat Exams 06/14/24 16:39 Taken Complete Blood Count Auto Diff Stat Lab 06/14/24 11:19 Completed Comprehensive Metabolic Panel Stat Lab 06/14/24 11:19 Completed HCG Qualitative, Serum Stat Lab 06/14/24 11:19 Completed HIV (1&2) Antibody Rapid Stat Lab 06/14/24 11:19 Completed Hep C Ab with Reflex to RNA Stat Lab 06/14/24 11:19 Received Lactic Acid Stat Lab 06/14/24 11:19 Completed Lipase Stat Lab 06/14/24 11:19 Completed Rapid PCR Covid and Flu A/B Stat Lab 06/14/24 11:50 Completed Trichomonas Vaginalis, ASHKAN Stat Lab 06/14/24 11:02 Received UA [Urinalysis and Microscopic] Stat Lab 06/14/24 11:02 Completed Blood Culture Stat Micro 06/14/24 11:56 Received Urine Culture Stat Micro 06/14/24 11:02 Received Medical Decision Narrative: In summary, this 48-year-old female presents to the emergency department today with left lower quadrant pain nausea vomiting. On initial evaluation patient is tachycardic in pain but no acute distress afebrile saturating appropriately on room air. Differential diagnosis includes but is not limited to diverticulitis intra-abdominal abscess urolithiasis pyelonephritis urinary tract infection tubo-ovarian abscess. Based on these concerns, I ordered CBC with differential, CMP, lipase test nasopharyngeal respiratory swab COVID flu lactate EKG CT abdomen pelvis UA blood culture. ECG personally interpreted demonstrates sinus tachycardia no ST elevation ST depression or T wave inversions concerning for ischemia normal axis. Patient received 30 cc/kg fluid bolus morphine and Zofran for treatment. Zosyn started in the setting of abdominal pain tachycardia and leukocytosis Labs personally reviewed demonstrate leukocytosis bicarb of 18 lactate of 1.5. UA with Hematuria pyuria nitrate negative CT imaging personally interpreted demonstrate mesenteric stranding in the left lower quadrant On reassessment patient has resolution of vomiting and improvement of pain after 4 mg morphine. At 4 PM transfer of care given to Dr. Arellano to follow up final CT read and disposition Eileen: I assumed primary responsibility for this patient after signout from previous physician. On my evaluation, patient obese, appears to be in mild distress rocking in bed, but speaking in full sentences. Abdomen is soft, distended, primarily tender left lower quadrant. No overlying skin changes. I do not appreciate any peritonitis, but patient asking for for pain medications. Dilaudid was ordered. Independent interpretation of workup with leukocytosis 23,000 with neutrophilia. Patient's chemistry otherwise nonactionable. Lipase negative, hCG negative. Urinalysis with protein, blood, but contaminated and low concern for UTI. CT of the abdomen and pelvis was independently interpreted, there is a 4 cm fluid collection in the left adnexa that appears to communicate with the uterus concerning for tubo-ovarian abscess. Ovary appears enlarged. Because of this, transvaginal ultrasound was emergently ordered. Transvaginal ultrasound was independently interpreted and patient has very little flow in the left ovary, significantly enlarged left ovary, especially compared to the right. RESEARCH AND DEVELOPMENT TESTER was contacted and case was discussed, recommended treatment for TOA. Patient has already received Unasyn, doxycycline was added on. RESEARCH AND DEVELOPMENT TESTER would like to admit patient primarily with general surgery consultation. General surgery was consulted and interactive discussion was had, will evaluate and consult on patient. Because patient high risk for clinical decompensation, deemed appropriate for inpatient admission. Results were relayed to patient who voiced understanding and patient was agreeable to inpatient admission and management. Patient was admitted to the hospital for further definitive management. Critical Care <Hodan Canales MD - Last Filed: 06/14/24 16:09> Critical Care Time Critical Care Time: No
--- NOTE | 2024-06-14 11:39 | CT_ITS ---
PROCEDURE INFORMATION: Exam: CT Abdomen And Pelvis With Contrast Exam date and time: 06/14/2024 3:23 PM Age: 48 years old Clinical indication: Abdominal pain; Additional info: Llq pain TECHNIQUE: Imaging protocol: Computed tomography of the abdomen and pelvis with contrast. Radiation optimization: All CT scans at this facility use at least one of these dose optimization techniques: automated exposure control; mA and/or kV adjustment per patient size (includes targeted exams where dose is matched to clinical indication); or iterative reconstruction. Contrast material: ISOVUE; Contrast volume: 75 ml; Contrast route: IV; COMPARISON: No relevant prior studies available. FINDINGS: Liver: Hepatic steatosis. Hepatomegaly 28 cm Gallbladder and biliary ducts: The gallbladder is unremarkable Pancreas: Normal. No ductal dilation. Spleen: Normal. No splenomegaly. Adrenal glands: Normal. No mass. Kidneys and ureters: The left kidney is mildly edematous but this may be secondary to the inflammatory process in the left hemipelvis. Stomach and bowel: There are inflammatory changes between the left psoas and the descending left colon. There is fluid collection in this region measuring 4.2 x 3 cm. This may represent an abscess either secondary to diverticulitis or PID. It is contiguous with inflamed solid structure that measures 4.5 x 3.7 cm series 3, image 93. This could represent inflamed left ovary or left adnexal region. Differential includes torsion .. Appendix: No evidence of appendicitis. Intraperitoneal space: Unremarkable. No free air. No significant fluid collection. Vasculature: Unremarkable. No abdominal aortic aneurysm. Lymph nodes: Unremarkable. No enlarged lymph nodes. Urinary bladder: Unremarkable as visualized. Reproductive: IUD in the uterus Bones/joints: Unremarkable. No acute fracture. Soft tissues: Unremarkable. IMPRESSION: 1. There are inflammatory changes between the left psoas and the descending left colon. There is fluid collection in this region measuring 4.2 x 3 cm. This may represent an abscess either secondary to diverticulitis or PID. It is contiguous with inflamed solid structure that measures 4.5 x 3.7 cm series 3, image 93. This could represent inflamed left ovary or left adnexal region. Differential includes torsion .. 2. The left kidney is mildly edematous but this may be secondary to the inflammatory process in the left hemipelvis.
--- NOTE | 2024-06-14 11:40 | ECG_ITS ---
APPROVED REPORT Exam: Resting ECG HR:107 bpm ECG Measurements Heart Rate 107 AXES OH 146 P 51 QRSd 90 QRS 17 QT 337 T 94 QTc 400 Conclusion SINUS TACHYCARDIA POSSIBLE LEFT ATRIAL ENLARGEMENT [-0.1mV P-WAVE IN V1/V2] NONSPECIFIC ST & T-WAVE ABNORMALITY No STEMI Electronically signed by : EVANGELINA GUTHRIE, 06/15/2024 04:30:17
[2024-06-14] MEDS: ONDANSETRON 4MG/2ML VIAL 4 MG IV ×2 (11:44→20:37)
[2024-06-14] MEDS: MORPHINE 4MG/ML SYRINGE 4 MG IV (11:44)
[2024-06-14 11:56] LABS: Coronavirus 19, PCR Not Detected (NotDetected); Influenza A, PCR Not Detected (NotDetected); Influenza B, PCR Not Detected (NotDetected)
[2024-06-14] MEDS: PIPERACILLIN/TAZO 4.5 GM in 0.9 % SODIUM CHLORIDE 100 ML IV (12:00)
[2024-06-14] MEDS: SODIUM CHLORIDE 1530 ML IV (12:17)
[2024-06-14 12:29] LABS: Chloride 105 mmol/L (98-107)
[2024-06-14 12:30] LABS: Albumin Level 4.7 g/dl (3.5-5.0); Sodium 136 mmol/L (136-145)
[2024-06-14 12:32] LABS: Microscopic, Urine URINE MICROSCOPIC (MICROSCOPIC)
[2024-06-14 12:32] LABS: Blood Urea Nitrogen 12 mg/dl (7-17); Carbon Dioxide 18 mmol/L (22.0-30.0); Creatinine Clearance Estimated 125 mL/min (50-200); Estimated Glomerular Filt Rate 67 ml/min (>60); GFR (African American) 81 ML/MIN (>60)
[2024-06-14 12:33] LABS: Alanine Aminotransferase 48 U/L (12-78); Alkaline Phosphatase 114 U/L (38-126); Aspartate Amino Transferase 39 U/L (14-36); Bilirubin,Total 1.3 mg/dl (0.2-1.3); Calcium 9.4 mg/dl (8.4-10.2); Globulin 4.8 g/dL (1.3-3.2); Glucose 193 mg/dl (74-100); Lipase 57 U/L (23-300); Total Protein,Serum 9.5 g/dl (6.3-8.2)
[2024-06-14 12:34] LABS: Lactic Acid 1.5 mmol/L (0.7-2.1)
[2024-06-14 12:35] LABS: Lymphocytes % 7 % (10-50); Monocytes % 5 % (2-9); Neutrophils % 88 % (42-76); RBC Morphology Normal; Total Cells Counted 100
[2024-06-14 12:36] LABS: Platelet Estimate Normal
[2024-06-14 13:04] LABS: Appearance,Urine CLEAR (Clear); Blood, Urine 2+ (Negative); Color,Urine YELLOW (Yellow); Glucose,Urine (UA) Negative (Negative); Ketones,Urine 1+ (Negative); Leukocyte Esterase,Urine 1+ (Negative); Nitrate,Urine Negative (Negative); Protein,Urine 2+ (Negative); Specific Gravity, Urine >= 1.030 (1.005-1.030)
[2024-06-14 13:13] LABS: Bilirubin,Urine Negative (Negative)
[2024-06-14 13:59] LABS: HCG Qualitative, Serum Negative (Negative)
--- NOTE | 2024-06-14 14:08 | PC.NURSE ---
pt ambulatory to bathroom while IV fluid bags for sepsis bolus are being changed. pt received 2L at this time.
--- NOTE | 2024-06-14 14:22 | PC.NURSE ---
verbal order contract paralegal per dr whitney, stop at 3L for sepsis bolus. Pt did receive 100mL NS with Zosyn abx administration.
[2024-06-14] MEDS: IOPAMIDOL-370 (76%);100ML BOTTLE 75 ML IV (15:24)
[2024-06-14] MEDS: SODIUM CHLORIDE 0.9% 10ML SYR (RAD ONLY) 10 ML IV (15:24)
[2024-06-14 16:21] LABS: HIV (1&2) Antibody Rapid NONREACTIVE (NONREACTIVE)
--- NOTE | 2024-06-14 16:39 | US_ITS ---
PROCEDURE INFORMATION: Exam: US Pelvis Transabdominal, Complete, and US Pelvis Transvaginal, Non-obstetric Exam date and time: 06/14/2024 5:15 PM Age: 48 years old Clinical indication: Pelvic pain; Additional info: Rule out torsion, L toa TECHNIQUE: Imaging protocol: Real-time complete transabdominal and transvaginal pelvic ultrasound (non-obstetric) with image documentation. Transvaginal imaging was used for better evaluation of the endometrium, adnexa, and/or cervix. COMPARISON: CT ABDOMEN PELVIS W CON 06/14/2024 3:23 PM FINDINGS: Uterus: Uterus is normal. Endometrial stripe is normal. Appropriately positioned intrauterine device within the endometrial cavity. Right ovary/adnexa: Ovary is normal. No mass. Vascular flow present. Left ovary/adnexa: Ovary is mildly enlarged. Complex left adnexal structure anteriorly adjacent to the left ovary with intrinsic hypervascularity. Vascular flow present. Intraperitoneal space: Minimal free fluid within the posterior cul-de-sac. Urinary bladder: Normal. IMPRESSION: 1. Mildly enlarged left ovary without definitive findings of torsion as vascular flow is present. 2. Complex left adnexal structure anteriorly adjacent to the left ovary with intrinsic hypervascularity, possibly representing phlegmonous changes or developing abscess, or mass as demonstrated on earlier performed CT.
--- NOTE | 2024-06-14 16:44 | PC.NURSE ---
cctv technician states that sterile instrument technician has been called in.
--- NOTE | 2024-06-14 17:36 | PC.NURSE ---
Pt. to US.
--- NOTE | 2024-06-14 17:44 | PC.NURSE ---
back in room at this time.
--- NOTE | 2024-06-14 17:50 | PC.NURSE ---
Pt. back to room from US.
[2024-06-14] MEDS: HYDROMORPHONE 2MG/ML SYRINGE 0.5 MG IV (18:07)
[2024-06-14] MEDS: SODIUM CHLORIDE 0.9% 10ML FLUSH SYRINGE 10 ML IV (18:08)
--- NOTE | 2024-06-14 18:14 | PC.NURSE ---
speaking with director of agronomy obivett
--- NOTE | 2024-06-14 18:30 | PC.NURSE ---
I notified house of the need for an OB bed for admission.
[2024-06-14] MEDS: DOXYCYCLINE HYCL 100 MG TABLET PO (18:36)
--- NOTE | 2024-06-14 18:54 | PC.NURSE ---
Report called to Antoinette MOORE in OB
--- NOTE | 2024-06-14 19:02 | PC.NURSE ---
Patient arrived to the unit at this time via wheelchair.
--- NOTE | 2024-06-14 19:54 | PC.NURSE ---
Dr. Flowers at bedside evaluating patient and discussing plan of care. Order received for sips & chips diet throughout night to promote bowel rest. MD phoned Dr. Hong to discuss plan of care.
--- NOTE | 2024-06-14 20:08 | PC.NURSE ---
Phoned Dr. Hong to notify of rn assessment, patient most recent VS, pain level, and to obtain orders. New orders received and readback/verified. MD to come to bedside to assess patient and discuss plan of care
--- NOTE | 2024-06-14 20:27 | PC.NURSE ---
Dr. Hong at bedside evaluating patient.
[2024-06-14] MEDS: LACTATED RINGERS 1000ML 1,000 ML 50 ML IV (20:36)
--- NOTE | 2024-06-14 20:42 | EXP.HP ---
History of Present Illness *Admission Date: 06/14/24 *Reason for visit:: Left lower quadrant pain, nausea vomiting, possible diverticulosis *History of present illness: Patient is a 48-year-old with past medical history of GERD presents to the emergency department with nausea vomiting and left lower quadrant pain. Pain is 10 out of 10 left lower quadrant similar to the last time she had diverticulitis. Patient last had a stool 24 hours ago. No blood in stool or urine. No dysuria. Patient has vomited 8 times in the last 24 hours nonbloody nonbilious. Has not taken any [id number] nausea vomiting medicine. Patient has been peeing less than normal. No fever or chills. No known sick contacts no chest pain shortness of breath cough congestion. She has a ParaGard IUD and ultrasound showed the IUD in the correct position. Ultrasound showed heterogenous area in the left adnexa that could be her left ovary with inflammation. There was no obvious collection of pus. There was trace fluid in the cul-de-sac. She says that her symptoms are similar to when she had diverticulitis in the past. She had some diaphoresis when she arrived on the floor with a temperature just below 100 ?F. She is now feeling better and we will have given her Tylenol and Toradol scheduled. She says that she has pain in the left lower quadrant over the sigmoid colon similar to where she had pain in the past with diverticulitis. [facility] Disclaimer: The information contained in this section may have been updated after the patient was seen, as this information can be updated by other users. Medical History (Updated 06/14/24 @ 20:46 by Marck Flowers MD) Diverticulitis large intestine Anxiety Depression Hyperlipidemia Surgical History No significant past surgical history Family History Family history of acute congestive heart failure Family history of cancer Family history of diabetes mellitus type II Social History Smoking Status: Never smoker alcohol intake: current substance use type: denies use current occupational status: employed Travel in the last 8 weeks: None Other Medical History Have you received the Flu Vaccine for this season: No Have you received the Pneumonia Vaccine: No Review of Systems Review of Systems Review of systems:: pertinent systems reviewed and negative unless documented below *Cardiovascular Cardiovascular: Denies dyspnea and Reports dyspnea on exertion *Respiratory Respiratory: Denies dyspnea and Reports dyspnea on exertion *Gastrointestinal Gastrointestinal: Reports as per [facility] Meds Home Medications and Allergies Home Medications ?Medication ?Instructions ?Recorded ?Confirmed ?Type escitalopram oxalate 20 mg tablet 20 mg PO DAILY 09/03/23 06/14/24 History meclizine 25 mg tablet 25 mg PO Q8H PRN vertigo' 09/03/23 06/14/24 History pantoprazole 40 mg tablet,delayed 40 mg PO DAILY 09/03/23 06/14/24 History release New Prescriptions to Start Prescriptions: Allergies Allergy/AdvReac Type Severity Reaction Status Date / Time Penicillins Allergy Other Verified 06/14/24 19:21 Exam Data for Last 24 hours Vital signs and Labs for Last 24 Hours: Temp Pulse Resp BP Pulse Ox O2 Del Method 99.9 F H 93 H 18 146/78 H 97 Room Air 06/14/24 19:24 06/14/24 19:24 06/14/24 19:24 06/14/24 19:24 06/14/24 19:24 06/14/24 19:24 Laboratory Results - last 24 hr 06/14/24 11:02: Urine Color Yellow, Urine Appearance Clear, Urine pH 6.0, Ur Specific [place] >= 1.030, Urine Protein 2+ A, Urine Glucose (UA) Negative, Urine Ketones 1+, Urine Blood 2+ A, Urine Nitrate Negative, Urine Bilirubin Negative, Urine Urobilinogen 1.0, Ur Leukocyte Esterase 1+ A, Urine RBC 5-10, Urine WBC 3-5, Ur Squamous Epith Cells 3-5 06/14/24 11:19: WBC 23.3 H*, RBC 5.01, Hgb 15.2, Hct 44.3, MCV 88.3, MCH 30.4, MCHC 34.4, RDW 14.5, Plt Count 236, MPV 11.8 H, Neut % (Auto) 87.2 H, Lymph % (Auto) 6.7 L, [place] % (Auto) 5.1, Eos % (Auto) 0.5, Baso % (Auto) 0.5, Neut # (Auto) 20.4 H, Lymph # (Auto) 1.6, [place] # (Auto) 1.2 H, Eos # (Auto) 0.1, Baso # (Auto) 0.1, Total Counted 100, Neutrophils % (Manual) 88 H, Lymphocytes % (Manual) 7 L, Monocytes % (Manual) 5, Platelet Estimate Normal, RBC Morphology Normal, Sodium 136, Potassium 4.0, Chloride 105, Carbon Dioxide 18 L, Anion Gap 17.0 H, BUN 12, Creatinine 0.90, Estimated Creat Clear 125, Estimated GFR 67, Est GFR ( Amer) 81, Glucose 193 H, Lactate 1.5, Calcium 9.4, Total Bilirubin 1.3, AST 39 H, ALT 48, Alkaline Phosphatase 114, Total Protein 9.5 H D, Albumin 4.7, Globulin 4.8 H, Albumin/Globulin Ratio 1.0 L, Lipase 57, Serum HCG, Qual Negative, HIV 1&2 Antibody Rapid Nonreactive 06/14/24 11:50: SARS-CoV-2 (PCR) Not detected, Influenza A Untype (PCR) Not detected, Influenza Type B (PCR) Not detected I & O for Last 24 hours: Intake & Output 06/12/24 06/13/24 06/14/24 06/15/24 11:59 11:59 11:59 11:59 Output Total 0 / 0 Balance 0 / 0 Weight 225 lb Constitutional Constitutional: no acute distress *Routine HEENT Exam Head: Present normocephalic Eye: Present EOMI and PERRL ENT: Present mucous membranes moist *Routine Neck Exam Neck: Present supple; Absent lymphadenopathy *Routine Respiratory Exam Respiratory: Present CTA bilaterally *Routine Cardiovascular Exam Cardiovascular: Present RRR *Routine Abdominal Exam Abdominal: Present soft and normoactive bowel sounds; Absent tenderness *Routine Rectal Exam Rectal:: deferred *Routine Genitalia Exam Genitalia:: deferred *Routine Extremities Exam Extremities: Absent cyanosis, clubbing or edema *Routine Skin Exam Skin: Present warm; Absent rash *Routine Neurological Exam Neurological: Present alert and oriented X3 Assessment and Plan *Assessment and plan (1) Diverticulitis large intestine: Problem Comment: Her history and exam is consistent with acute on chronic diverticulitis. I suspect that she had a left ovarian cyst that is now infected secondary to the inflammation and infection in the colon. I would recommend a period of nonoperative management with IV antibiotics and bowel rest. I would also recommend a repeat image should she improve. Should she worsen or her laboratory workup fail to improve I would recommend operation. I will follow Status: Acute Qualifiers: Diverticulitis bleeding: without bleeding Diverticulitis complication: without perforation or abscess Qualified Code(s): K57.32 - Diverticulitis of large intestine without perforation or abscess without bleeding Category: Medical Code(s): K57.32 - Diverticulitis of large intestine without perforation or abscess without bleeding (2) Left lower quadrant pain: Status: Acute Category: Medical Code(s): R10.32 - Left lower quadrant pain (3) Left tubo-ovarian abscess: Status: Acute Category: Medical Code(s): N70.93 - Salpingitis and oophoritis, unspecified Plan She is admitted for observation. She was seen by general surgery and they felt that she probably had diverticulitis with possible left ovary involvement. We will keep her on IV Zosyn and clear liquids for now. I have ordered Tylenol 650 mg and Toradol 10 mg p.o. scheduled. She has Zofran ordered for nausea but she has not had any further episodes of emesis or nausea. We have ordered her narcotics as well for any increased pain that is not controlled with Tylenol and Toradol. We will plan to keep her on antibiotics for now. If she has any deterioration then she may need surgery. Hopefully the inflammation will start to settle over the next couple of days. We will follow her with general surgery as well.
--- NOTE | 2024-06-14 20:42 | EXP.SURG.CON ---
History of Present Illness *Admission Date: 06/14/24 *Reason for visit:: Abdominal pain *History of present illness: Ms. Ford is a 48-year-old lady that presents to the emergency department with increasing left lower quadrant abdominal pain. She states this is similar to her previous episodes of diverticulitis. She was first diagnosed with diverticulitis 5 years ago and has had several episodes since then that she has managed at home with a clear liquid diet. She does have a history of a left ovarian cyst and has had symptoms with this in the past that radiated to her back. She admits to a decrease in her appetite as well as some diarrhea as of late. The pain has become unbearable and she states that it is worse when she feels like she has to have a bowel movement. She has a subjective fever at home [facility] Disclaimer: The information contained in this section may have been updated after the patient was seen, as this information can be updated by other users. Medical History Anxiety Depression Hyperlipidemia Surgical History No significant past surgical history Family History Other Family history of acute congestive heart failure Family history of cancer Family history of diabetes mellitus type II Social History (Updated 06/14/24 @ 19:19 by Trinity Camp RN) Smoking Status: Never smoker alcohol intake: current substance use type: denies use current occupational status: employed Travel in the last 8 weeks: None Meds Home Medications and Allergies Home Medications ?Medication ?Instructions ?Recorded ?Confirmed ?Type escitalopram oxalate 20 mg tablet 20 mg PO DAILY 09/03/23 06/14/24 History meclizine 25 mg tablet 25 mg PO Q8H PRN vertigo' 09/03/23 06/14/24 History pantoprazole 40 mg tablet,delayed 40 mg PO DAILY 09/03/23 06/14/24 History release New Prescriptions to Start Prescriptions: Allergies Allergy/AdvReac Type Severity Reaction Status Date / Time Penicillins Allergy Other Verified 06/14/24 19:21 Exam (Inpt) Vital signs and Labs for Last 24 Hours: Temp Pulse Resp BP Pulse Ox O2 Del Method 99.9 F H 93 H 18 146/78 H 97 Room Air 06/14/24 19:24 06/14/24 19:24 06/14/24 19:24 06/14/24 19:24 06/14/24 19:24 06/14/24 19:24 Laboratory Results - last 24 hr 06/14/24 11:02: Urine Color Yellow, Urine Appearance Clear, Urine pH 6.0, Ur Specific [place] >= 1.030, Urine Protein 2+ A, Urine Glucose (UA) Negative, Urine Ketones 1+, Urine Blood 2+ A, Urine Nitrate Negative, Urine Bilirubin Negative, Urine Urobilinogen 1.0, Ur Leukocyte Esterase 1+ A, Urine RBC 5-10, Urine WBC 3-5, Ur Squamous Epith Cells 3-5 06/14/24 11:19: WBC 23.3 H*, RBC 5.01, Hgb 15.2, Hct 44.3, MCV 88.3, MCH 30.4, MCHC 34.4, RDW 14.5, Plt Count 236, MPV 11.8 H, Neut % (Auto) 87.2 H, Lymph % (Auto) 6.7 L, [place] % (Auto) 5.1, Eos % (Auto) 0.5, Baso % (Auto) 0.5, Neut # (Auto) 20.4 H, Lymph # (Auto) 1.6, [place] # (Auto) 1.2 H, Eos # (Auto) 0.1, Baso # (Auto) 0.1, Total Counted 100, Neutrophils % (Manual) 88 H, Lymphocytes % (Manual) 7 L, Monocytes % (Manual) 5, Platelet Estimate Normal, RBC Morphology Normal, Sodium 136, Potassium 4.0, Chloride 105, Carbon Dioxide 18 L, Anion Gap 17.0 H, BUN 12, Creatinine 0.90, Estimated Creat Clear 125, Estimated GFR 67, Est GFR ( Amer) 81, Glucose 193 H, Lactate 1.5, Calcium 9.4, Total Bilirubin 1.3, AST 39 H, ALT 48, Alkaline Phosphatase 114, Total Protein 9.5 H D, Albumin 4.7, Globulin 4.8 H, Albumin/Globulin Ratio 1.0 L, Lipase 57, Serum HCG, Qual Negative, HIV 1&2 Antibody Rapid Nonreactive 06/14/24 11:50: SARS-CoV-2 (PCR) Not detected, Influenza A Untype (PCR) Not detected, Influenza Type B (PCR) Not detected I & O for Labs for Last 24 Hours: Intake & Output 06/11/24 06/12/24 06/13/24 06/14/24 23:59 23:59 23:59 23:59 Output Total 0 / 0 Balance 0 / 0 Weight 225 lb Constitutional: no acute distress and obese Cardiac: Present Reg Rate and Rhythm GI: Present soft and tenderness (suprapubic and LLQ tenderness with palpable mass); Absent distention Results Labs 06/14/24 11:19 06/14/24 11:19 Labs: Laboratory Results - last 24 hr 06/14/24 11:02: Urine Color Yellow, Urine Appearance Clear, Urine pH 6.0, Ur Specific [place] >= 1.030, Urine Protein 2+ A, Urine Glucose (UA) Negative, Urine Ketones 1+, Urine Blood 2+ A, Urine Nitrate Negative, Urine Bilirubin Negative, Urine Urobilinogen 1.0, Ur Leukocyte Esterase 1+ A, Urine RBC 5-10, Urine WBC 3-5, Ur Squamous Epith Cells 3-5 06/14/24 11:19: WBC 23.3 H*, RBC 5.01, Hgb 15.2, Hct 44.3, MCV 88.3, MCH 30.4, MCHC 34.4, RDW 14.5, Plt Count 236, MPV 11.8 H, Neut % (Auto) 87.2 H, Lymph % (Auto) 6.7 L, [place] % (Auto) 5.1, Eos % (Auto) 0.5, Baso % (Auto) 0.5, Neut # (Auto) 20.4 H, Lymph # (Auto) 1.6, [place] # (Auto) 1.2 H, Eos # (Auto) 0.1, Baso # (Auto) 0.1, Total Counted 100, Neutrophils % (Manual) 88 H, Lymphocytes % (Manual) 7 L, Monocytes % (Manual) 5, Platelet Estimate Normal, RBC Morphology Normal, Sodium 136, Potassium 4.0, Chloride 105, Carbon Dioxide 18 L, Anion Gap 17.0 H, BUN 12, Creatinine 0.90, Estimated Creat Clear 125, Estimated GFR 67, Est GFR ( Amer) 81, Glucose 193 H, Lactate 1.5, Calcium 9.4, Total Bilirubin 1.3, AST 39 H, ALT 48, Alkaline Phosphatase 114, Total Protein 9.5 H D, Albumin 4.7, Globulin 4.8 H, Albumin/Globulin Ratio 1.0 L, Lipase 57, Serum HCG, Qual Negative, HIV 1&2 Antibody Rapid Nonreactive 06/14/24 11:50: SARS-CoV-2 (PCR) Not detected, Influenza A Untype (PCR) Not detected, Influenza Type B (PCR) Not detected Imaging CT scan - abdomen: report reviewed and image reviewed Assessment and Plan *Assessment and plan (1) Diverticulitis large intestine: Problem Comment: Her history and exam is consistent with acute on chronic diverticulitis. I suspect that she had a left ovarian cyst that is now infected secondary to the inflammation and infection in the colon. I would recommend a period of nonoperative management with IV antibiotics and bowel rest. I would also recommend a repeat image should she improve. Should she worsen or her laboratory workup fail to improve I would recommend operation. I will follow Status: Acute Category: Medical Code(s): K57.32 - Diverticulitis of large intestine without perforation or abscess without bleeding (2) Left tubo-ovarian abscess: Status: Acute Category: Medical Code(s): N70.93 - Salpingitis and oophoritis, unspecified
[2024-06-14] MEDS: ACETAMINOPHEN 325MG TAB 650 MG PO (21:19)
[2024-06-14] MEDS: KETOROLAC 10MG TABLET 10 MG PO (21:19)
[2024-06-14] MEDS: FAMOTIDINE 20MG TABLET 20 MG PO (21:19)
[2024-06-14] MEDS: PIPERACILLIN/TAZO 3.375 GM in 0.9 % SODIUM CHLORIDE 50 ML IV (21:53)
[2024-06-15 00:09] VITALS: BP 106/59; PULSE 74; RESP 16; TEMP 36.8; O2SAT 98
[2024-06-15] MEDS: KETOROLAC 10MG TABLET 10 MG PO ×4 (03:39→21:20)
[2024-06-15] MEDS: PIPERACILLIN/TAZO 3.375 GM in 0.9 % SODIUM CHLORIDE 50 ML IV ×4 (03:39→21:19)
[2024-06-15] MEDS: ACETAMINOPHEN 325MG TAB 650 MG PO ×4 (03:39→21:20)
[2024-06-15 03:46] VITALS: BP 144/85; PULSE 85; RESP 18; TEMP 36.9; O2SAT 100
--- NOTE | 2024-06-15 03:46 | PC.NURSE ---
Patient resting with eyes closed upon entry into room and awoke for scheduled medication administration. Patient alert and oriented x4. Heart sounds auscultated over left apex with a normal rate and rhythm. Lung sounds auscultated clear bilaterally and throughout. Bowel sounds active in all four quadrants. Abdomen remains soft but tender in left lower quadrant. Patient states pain is improved during palpation compared to on admission and pain improved when using the bathroom. Patient ambulated to bathroom while RN in room and voided 400 mL of concentrated dark urine. IVF continue with LR at 50 mL/hr when Zosyn not infusing. Skin remains pink and intact, but patient reports sweating off and on. Patient noted to be shivering and with the fan directly on her, but declines removal of fan or adjustment of room temperature. Body temperature WNL. Medications given per orders. Patient denies further needs at this time. Trash removed from room.
[2024-06-15 07:39] LABS: Basophils # 0.1 K/mm3 (0-0.2); Basophils % 0.4 % (0.1-2.0); Eosinophils # 0.1 K/mm3 (0.0-0.4); Eosinophils % 0.9 % (0.1-12.0); Hematocrit 37.2 % (37.0-47.0); Lymphocytes # 1.3 K/mm3 (0.7-4.5); Lymphocytes % 9.9 % (10-50); Mean Corpuscular HGB Conc 33.9 g/dL (31.8-35.4); Mean Corpuscular Hemoglobin 31.1 pg (27.0-31.2); Mean Corpuscular Volume 91.6 fl (81-99); Mean Platelet Volume 11.5 fl (7.4-10.4); Monocytes # 0.6 K/mm3 (0.1-1.0); Monocytes % 4.6 % (1.7-9.3); Neutrophils # 11.1 K/mm3 (1.8-7.8); Neutrophils % 84.3 % (37.0-80.0); Platelet Count 147 K/mm3 (142-424); Red Blood Count 4.06 M/mm3 (4.20-5.40); Red Cell Distribution Width 14.3 % (11.5-17.5); White Blood Count 13.2 K/mm3 (4.8-10.8)
[2024-06-15 07:53] LABS: Albumin Level 3.6 g/dl (3.5-5.0); Chloride 110 mmol/L (98-107); Potassium 3.8 mmoL/L (3.5-5.1); Sodium 141 mmol/L (136-145)
[2024-06-15 07:56] LABS: Alanine Aminotransferase 52 U/L (12-78); Alkaline Phosphatase 87 U/L (38-126); Anion Gap 9.8 mEq/L (5-15); Aspartate Amino Transferase 61 U/L (14-36); Bilirubin,Total 1.1 mg/dl (0.2-1.3); Blood Urea Nitrogen 12 mg/dl (7-17); Calcium 8.7 mg/dl (8.4-10.2); Carbon Dioxide 25 mmol/L (22.0-30.0); Creatinine Clearance Estimated 112 mL/min (50-200); Estimated Glomerular Filt Rate 59 ml/min (>60); GFR (African American) 72 ML/MIN (>60); Globulin 3.6 g/dL (1.3-3.2); Glucose 139 mg/dl (74-100); Total Protein,Serum 7.2 g/dl (6.3-8.2)
[2024-06-15 08:00] LABS: Hemoglobin 12.6 g/dL (12.2-16.2)
[2024-06-15 08:13] VITALS: BP 134/61; PULSE 72; RESP 17; TEMP 36.7; O2SAT 99
[2024-06-15 08:15] VITALS: O2SAT 99
--- NOTE | 2024-06-15 10:23 | P.PN_ITS ---
Subjective *Date: 06/15/24 *Time: 10:23 Interval history: She is doing a little better this morning. She still has some left lower quadrant pain. She denies any fever or chills. Her white blood cell count has come down to 13.2. She says her pain is doing well with just Tylenol and keto rolac. She denies any chest pain, shortness of breath or calf tenderness. She is still on clear liquid diet. Medical Exam Vital signs and Labs for Last 24 Hours: Vital Signs Temp Pulse Pulse Pulse Resp BP BP 06/15/24 08:15 06/15/24 08:15 06/15/24 08:13 98.0 F 72 17 134/61 06/15/24 07:00 06/15/24 06:20 06/15/24 05:22 06/15/24 04:13 06/15/24 03:46 98.4 F 85 18 144/85 H 06/15/24 03:46 06/15/24 02:32 06/15/24 01:14 06/15/24 00:09 98.2 F 74 16 106/59 L 06/15/24 00:09 06/14/24 23:11 06/14/24 22:13 06/14/24 21:19 06/14/24 20:36 06/14/24 19:24 06/14/24 19:24 06/14/24 19:24 99.9 F H 93 H 18 146/78 H 06/14/24 19:04 98.2 F 91 H 16 148/82 H 06/14/24 18:30 96 H 148/82 H 06/14/24 18:11 101 H 146/77 H 06/14/24 17:00 85 138/83 06/14/24 16:30 84 137/75 06/14/24 16:00 94 H 140/78 06/14/24 15:30 94 H 150/88 H 06/14/24 15:00 80 142/81 H 06/14/24 14:30 82 151/94 H 06/14/24 14:01 85 146/87 H 06/14/24 13:30 92 H 151/81 H 06/14/24 13:00 85 133/81 06/14/24 12:30 85 134/78 06/14/24 12:00 97 H 146/92 H 06/14/24 11:30 107 H 153/91 H 06/14/24 11:10 98.4 F 111 H 18 06/14/24 11:06 123 H 135/81 BP Pulse Ox O2 Del Method 06/15/24 08:15 Room Air 06/15/24 08:15 99 Room Air 06/15/24 08:13 99 Room Air 06/15/24 07:00 Room Air 06/15/24 06:20 Room Air 06/15/24 05:22 Room Air 06/15/24 04:13 Room Air 06/15/24 03:46 100 Room Air 06/15/24 03:46 Room Air 06/15/24 02:32 Room Air 06/15/24 01:14 Room Air 06/15/24 00:09 98 Room Air 06/15/24 00:09 Room Air 06/14/24 23:11 Room Air 06/14/24 22:13 Room Air 06/14/24 21:19 Room Air 06/14/24 20:36 Room Air 06/14/24 19:24 Room Air 06/14/24 19:24 Room Air 06/14/24 19:24 97 Room Air 06/14/24 19:04 06/14/24 18:30 92 L Room Air 06/14/24 18:11 92 L Room Air 06/14/24 17:00 98 Room Air 06/14/24 16:30 95 Room Air 06/14/24 16:00 99 Room Air 06/14/24 15:30 98 Room Air 06/14/24 15:00 97 Room Air 06/14/24 14:30 98 06/14/24 14:01 96 06/14/24 13:30 98 Room Air 06/14/24 13:00 95 Room Air 06/14/24 12:30 94 L 06/14/24 12:00 95 06/14/24 11:30 96 06/14/24 11:10 135/81 97 Room Air 06/14/24 11:06 97 Intake and Output 06/14/24 06/15/24 06/15/24 19:59 03:59 11:59 Intake Total 208 / 208 Output Total 0 / 500 400 / 500 100 / 500 Balance 0 / -292 -400 / -292 108 / -292 Intake: Intake, Total IV Amount 208 / 208 Lactated Ringers 1000ML 1,000 ml @ 50 mls/hr IV .Q20H [facility] Rx# :[id number] Output: Output, Urine Amount 0 / 500 400 / 500 100 / 500 Other: Number of Unmeasured Voids 1 Laboratory Results - last 24 hr 06/14/24 11:02: Urine Color Yellow, Urine Appearance Clear, Urine pH 6.0, Ur Specific [place] >= 1.030, Urine Protein 2+ A, Urine Glucose (UA) Negative, Urine Ketones 1+, Urine Blood 2+ A, Urine Nitrate Negative, Urine Bilirubin Negative, Urine Urobilinogen 1.0, Ur Leukocyte Esterase 1+ A, Urine RBC 5-10, Urine WBC 3-5, Ur Squamous Epith Cells 3-5 06/14/24 11:19: WBC 23.3 H*, RBC 5.01, Hgb 15.2, Hct 44.3, MCV 88.3, MCH 30.4, MCHC 34.4, RDW 14.5, Plt Count 236, MPV 11.8 H, Neut % (Auto) 87.2 H, Lymph % (Auto) 6.7 L, [place] % (Auto) 5.1, Eos % (Auto) 0.5, Baso % (Auto) 0.5, Neut # (Auto) 20.4 H, Lymph # (Auto) 1.6, [place] # (Auto) 1.2 H, Eos # (Auto) 0.1, Baso # (Auto) 0.1, Total Counted 100, Neutrophils % (Manual) 88 H, Lymphocytes % (Manual) 7 L, Monocytes % (Manual) 5, Platelet Estimate Normal, RBC Morphology Normal, Sodium 136, Potassium 4.0, Chloride 105, Carbon Dioxide 18 L, Anion Gap 17.0 H, BUN 12, Creatinine 0.90, Estimated Creat Clear 125, Estimated GFR 67, Est GFR ( Amer) 81, Glucose 193 H, Lactate 1.5, Calcium 9.4, Total Bilirubin 1.3, AST 39 H, ALT 48, Alkaline Phosphatase 114, Total Protein 9.5 H D , Albumin 4.7, Globulin 4.8 H, Albumin/Globulin Ratio 1.0 L, Lipase 57, Serum HCG, Qual Negative, HIV 1&2 Antibody Rapid Nonreactive 06/14/24 11:50: SARS-CoV-2 (PCR) Not detected, Influenza A Untype (PCR) Not detected, Influenza Type B (PCR) Not detected 06/15/24 07:19: WBC 13.2 H D, RBC 4.06 L, Hgb 12.6 D, Hct 37.2, MCV 91.6, MCH 31.1, MCHC 33.9, RDW 14.3, Plt Count 147 D, MPV 11.5 H, Neut % (Auto) 84.3 H, Lymph % (Auto) 9.9 L, [place] % (Auto) 4.6, Eos % (Auto) 0.9, Baso % (Auto) 0.4, Neut # (Auto) 11.1 H, Lymph # (Auto) 1.3, [place] # (Auto) 0.6, Eos # (Auto) 0.1, Baso # (Auto) 0.1, Sodium 141, Potassium 3.8, Chloride 110 H, Carbon Dioxide 25, Anion Gap 9.8, BUN 12, Creatinine 1.00, Estimated Creat Clear 112, Estimated GFR 59, Est GFR ( Amer) 72, Glucose 139 H D, Calcium 8.7, Total Bilirubin 1.1, AST 61 H D, ALT 52, Alkaline Phosphatase 87, Total Protein 7.2, Albumin 3.6 D, Globulin 3.6 H, Albumin/Globulin Ratio 1.0 L I & O for Labs for Last 24 Hours: Intake & Output 06/12/24 06/13/24 06/14/24 06/15/24 11:59 11:59 11:59 11:59 Intake Total 208 / 208 Output Total 500 / 500 Balance -292 / -292 Weight 225 lb Head: Present normocephalic Neck: Present normal inspection Respiratory: Present normal respiratory effort; Absent accessory muscle use Cardiac: Present Reg Rate and Rhythm GI: Present soft, tenderness (She has tenderness in the left lower quadrant.), guarding and normal bowel sounds; Absent distention Rectal (female): Present deferred (female): Present deferred Extremities: Present full ROM Assessment and Plan *Assessment and plan (1) Left lower quadrant pain: Status: Acute Category: Medical Code(s): R10.32 - Left lower quadrant pain (2) Diverticulitis large intestine: Problem Comment: Her history and exam is consistent with acute on chronic diverticulitis. I suspect that she had a left ovarian cyst that is now infected secondary to the inflammation and infection in the colon. I would recommend a period of nonoperative management with IV antibiotics and bowel rest. I would also recommend a repeat image should she improve. Should she worsen or her laboratory workup fail to improve I would recommend operation. I will follow Status: Acute Qualifiers: Diverticulitis bleeding: without bleeding Diverticulitis complication: without perforation or abscess Qualified Code(s): K57.32 - Diverticulitis of large intestine without perforation or abscess without bleeding Category: Medical Code(s): K57.32 - Diverticulitis of large intestine without perforation or abscess without bleeding (3) Left tubo-ovarian abscess: Status: Acute Category: Medical Code(s): N70.93 - Salpingitis and oophoritis, unspecified Plan She is doing a little better this morning. She denies any fever or chills. Her pain is improving. Her white blood cell count has come down to 13.2. We will continue with the ketorolac, Tylenol scheduled as well as her Zosyn. We will discuss with Dr. Flowers whether she can increase her diet to full liquids. We will plan to continue with the IV antibiotics for at least another day or 2.
--- NOTE | 2024-06-15 10:59 | HMH.PHAINT1 ---
Pharmacy Intervention Comments: MEDICATION RECONCILIATION COMPLETE USING EXTERNAL PHARMACY FILL HISTORY.
[2024-06-15 11:09] LABS: HCV Ab Non Reactive (Non Reactive)
--- NOTE | 2024-06-15 11:47 | P.PN_ITS ---
Subjective Narrative: Feeling much better with some mild continued pain, passing some gas Exam Data for Last 24 hours Vital signs and Labs for Last 24 Hours: Temp Pulse Resp BP Pulse Ox O2 Del Method 98.0 F 72 17 134/61 99 Room Air 06/15/24 08:13 06/15/24 08:13 06/15/24 08:13 06/15/24 08:13 06/15/24 08:15 06/15/24 11:20 Laboratory Results - last 24 hr 06/14/24 11:02: Urine Color Yellow, Urine Appearance Clear, Urine pH 6.0, Ur Specific [place] >= 1.030, Urine Protein 2+ A, Urine Glucose (UA) Negative, Urine Ketones 1+, Urine Blood 2+ A, Urine Nitrate Negative, Urine Bilirubin Negative, Urine Urobilinogen 1.0, Ur Leukocyte Esterase 1+ A, Urine RBC 5-10, Urine WBC 3-5, Ur Squamous Epith Cells 3-5 06/14/24 11:19: Total Counted 100, Neutrophils % (Manual) 88 H, Lymphocytes % (Manual) 7 L, Monocytes % (Manual) 5, Platelet Estimate Normal, RBC Morphology Normal, Sodium 136, Potassium 4.0, Chloride 105, Carbon Dioxide 18 L, Anion Gap 17.0 H, BUN 12, Creatinine 0.90, Estimated Creat Clear 125, Estimated GFR 67, Est GFR ( Amer) 81, Glucose 193 H, Lactate 1.5, Calcium 9.4, Total Bilirubin 1.3, AST 39 H, ALT 48, Alkaline Phosphatase 114, Total Protein 9.5 H D , Albumin 4.7, Globulin 4.8 H, Albumin/Globulin Ratio 1.0 L, Lipase 57, Serum HCG, Qual Negative, Hepatitis C Antibody Non reactive, HIV 1&2 Antibody Rapid Nonreactive 06/14/24 11:50: SARS-CoV-2 (PCR) Not detected, Influenza A Untype (PCR) Not detected, Influenza Type B (PCR) Not detected 06/15/24 07:19: WBC 13.2 H D, RBC 4.06 L, Hgb 12.6 D, Hct 37.2, MCV 91.6, MCH 31.1, MCHC 33.9, RDW 14.3, Plt Count 147 D, MPV 11.5 H, Neut % (Auto) 84.3 H, Lymph % (Auto) 9.9 L, [place] % (Auto) 4.6, Eos % (Auto) 0.9, Baso % (Auto) 0.4, Neut # (Auto) 11.1 H, Lymph # (Auto) 1.3, [place] # (Auto) 0.6, Eos # (Auto) 0.1, Baso # (Auto) 0.1, Sodium 141, Potassium 3.8, Chloride 110 H, Carbon Dioxide 25, Anion Gap 9.8, BUN 12, Creatinine 1.00, Estimated Creat Clear 112, Estimated GFR 59, Est GFR ( Amer) 72, Glucose 139 H D, Calcium 8.7, Total Bilirubin 1.1, AST 61 H D, ALT 52, Alkaline Phosphatase 87, Total Protein 7.2, Albumin 3.6 D, Globulin 3.6 H, Albumin/Globulin Ratio 1.0 L I & O for Last 24 hours: Intake & Output 06/12/24 06/13/24 06/14/24 06/15/24 23:59 23:59 23:59 23:59 Intake Total 208 / 208 Output Total 0 / 0 500 / 500 Balance 0 / 0 -292 / -292 Weight 225 lb *Routine Abdominal Exam Abdominal: Present soft and tenderness (mild LLQ and suprapubic tenderness; no guarding) Progress Note: A&P Assessment and plan (1) Left lower quadrant pain: Status: Acute (2) Diverticulitis large intestine: Problem details: Diverticulitis is improving. I suspect that this is all related to her colon with a secondary left ovarian infected cyst. Continue antibiotics. Allow clears today. I would reimage before allowing regular diet. Status: Acute (3) Left tubo-ovarian abscess: Status: Acute
[2024-06-15] MEDS: OXYCODONE 5MG IMMEDIATE RELEASE TABLET 5 MG PO (16:38)
[2024-06-15] MEDS: LACTATED RINGERS 1000ML 1,000 ML 50 ML IV (16:39)
[2024-06-15 16:40] VITALS: BP 120/75; PULSE 77; RESP 15; TEMP 37; O2SAT 98
--- NOTE | 2024-06-15 16:48 | PC.NURSE ---
Patient has done well this shift thus far. No acute events noted. Patient's LLQ remains hypoactive, while all other quadrants are active. Patient has tolerated PO clear intake. Lung sounds are clear throughout, patient is A&Ox4.
[2024-06-15] MEDS: SIMETHICONE 80MG CHEWABLE TABLET 160 MG PO (16:56)
[2024-06-15 20:32] VITALS: BP 142/79; PULSE 76; RESP 18; TEMP 37.1; O2SAT 100
--- NOTE | 2024-06-15 20:45 | PC.NURSE ---
Patient up to shower. IV site covered with plastic and coban. Bed linens changed for patient.
[2024-06-15] MEDS: FAMOTIDINE 20MG TABLET 20 MG PO (21:21)
[2024-06-15] MEDS: CITALOPRAM 40MG TABLET 40 MG PO (21:21)
[2024-06-16] MEDS: ACETAMINOPHEN 325MG TAB 650 MG PO ×4 (03:45→21:13)
[2024-06-16] MEDS: KETOROLAC 10MG TABLET 10 MG PO ×4 (03:45→21:22)
[2024-06-16] MEDS: PIPERACILLIN/TAZO 3.375 GM in 0.9 % SODIUM CHLORIDE 50 ML IV ×4 (03:45→21:13)
[2024-06-16 03:46] VITALS: BP 142/78; PULSE 76; RESP 16; TEMP 36.8; O2SAT 99
--- NOTE | 2024-06-16 03:46 | PC.NURSE ---
Patient has done well and rested the majority of the shift. Patient resting with eyes closed once RN entered room and awoke to verbal stimuli. Alert and oriented x4. Rates pain as a 1/10 in LLQ and states really only hurts when I push to pee. Heart sounds auscultated over left apex at normal rate and rhythm. Lung sounds clear bilaterally and throughout. Bowel sounds present and normoactive in all four quadrants. Reports voiding more than previous nights and that she believes her menstrual cycle has started. Small amounts red blood noted in urine hat and on pads. IV remains patent and asymptomatic with Zosyn currently infusing and once complete, line will be flushed and LR resumed. Patient denies further needs and wishes to go back to rest.
[2024-06-16 07:59] VITALS: BP 147/74; PULSE 71; RESP 18; TEMP 36.7; O2SAT 94
--- NOTE | 2024-06-16 10:00 | PC.NURSE ---
Dr. Hong at bedside.
--- NOTE | 2024-06-16 11:02 | P.PN_ITS ---
Subjective Narrative: Patient is a 48-year-old female who presented to the emergency department on 06/14/2024 with left lower quadrant abdominal pain radiating to the left groin area for several days. She described the pain is quite severe and rated it as a 10 out of 10. This was followed by intractable nausea and vomiting such that sh e was unable to tolerate any oral intake. She therefore presented to the emergency department. She has a known history of previous diverticulitis dating back for 5-10 years which is usually been managed without admission. She has never had prior colonoscopy. She apparently does have a history of left ovarian cyst. Evaluation in the emergency department revealed a leukocytosis of 23,000. She underwent CT scan in the emergency department which revealed inflammatory changes between the left psoas muscle and descending colon with fluid collection measuring 4.2 x 3 cm. This was contiguous with inflamed solid structure that measures 4.5 x 3.7 cm which is felt to be inflamed left ovary in the left adnexal region. She did undergo transvaginal ultrasound which revealed complex left adnexal structure anteriorly adjacent to the left ovary with intrinsic hypervascularity, possibly representing phlegmonous changes or developing abscess or mass. She was admitted primarily to [facility] and surgical consultation was obtained with the surgeon on-call. Dr. Flowers felt that this was an exacerbation of acute on chronic diverticulitis with secondary infection of the left ovary. Recommendations were for nonoperative management for mildly complicated diverticulitis. Subsequently her pain has improved. She still does have some persistent discomfort. She is tolerating clear liquids. She states that her bowels have moved. Exam Data for Last 24 hours Vital signs and Labs for Last 24 Hours: Temp Pulse Resp BP Pulse Ox O2 Del Method 98.0 F 71 18 147/74 H 94 L Room Air 06/16/24 07:59 06/16/24 07:59 06/16/24 07:59 06/16/24 07:59 06/16/24 07:59 06/16/24 09:06 Laboratory Results - last 24 hr 06/14/24 11:19: Hepatitis C Antibody Non reactive I & O for Last 24 hours: Intake & Output 06/13/24 06/14/24 06/15/24 06/16/24 11:59 11:59 11:59 11:59 Intake Total 208 / 208 1889 / 1889 Output Total 500 / 500 1250 / 1250 Balance -292 / -292 639 / 639 Weight 225 lb Microbiology Reports for the Last 24 Hours: Microbiology 06/14/24 11:02 Urine,Clean Catch Urine Culture - Final 06/14/24 11:56 Blood Blood Culture - Preliminary NO GROWTH AFTER 24 HOURS 06/14/24 11:50 Blood Blood Culture - Preliminary NO GROWTH AFTER 24 HOURS *Routine Abdominal Exam Abdominal: Present soft Comments: Mild discomfort in left lower quadrant. Progress Note: A&P Assessment and plan (1) Left lower quadrant pain: Status: Acute (2) Diverticulitis large intestine: Status: Acute Assessment and plan: I will go ahead and advance her to full liquids at this time as her nausea has improved and she has had bowel function. Dr. Flowers recommended reimaging prior to advancement to regular diet. I would not reimage as of yet as this is only been about 48 hours. (3) Left tubo-ovarian abscess: Status: Acute
[2024-06-16 12:05] VITALS: BMI 34.1
--- NOTE | 2024-06-16 13:26 | PC.NURSE ---
Dr. Brooke at bedside.
--- NOTE | 2024-06-16 14:46 | EXP.ACUTE.PN ---
Subjective *Date: 06/16/24 *Time: 14:46 Interval history: She seems to be doing a little better today. She denies any fever or chills. Her white cell count had come down. She says her pain is improved. She has had a bowel movement. Medical Exam Vital signs and Labs for Last 24 Hours: Vital Signs Temp Pulse Resp BP Pulse Ox O2 Del Method 06/16/24 13:13 Room Air 06/16/24 11:40 Room Air 06/16/24 09:06 Room Air 06/16/24 08:59 Room Air 06/16/24 07:59 98.0 F 71 18 147/74 H 94 L Room Air 06/16/24 07:15 Room Air 06/16/24 06:28 Room Air 06/16/24 05:32 Room Air 06/16/24 04:48 Room Air 06/16/24 03:46 98.3 F 76 16 142/78 H 99 Room Air 06/16/24 03:46 Room Air 06/16/24 02:36 Room Air 06/16/24 01:31 Room Air 06/16/24 00:20 Room Air 06/15/24 23:16 Room Air 06/15/24 22:13 Room Air 06/15/24 21:19 Room Air 06/15/24 20:32 Room Air 06/15/24 20:32 98.7 F 76 18 142/79 H 100 Room Air 06/15/24 20:32 Room Air 06/15/24 19:34 Room Air 06/15/24 18:24 Room Air 06/15/24 17:26 Room Air 06/15/24 16:45 Room Air 06/15/24 16:40 98.6 F 77 15 120/75 98 Room Air 06/15/24 15:15 Room Air Intake and Output 06/16/24 06/16/24 06/16/24 03:59 11:59 19:59 Intake Total 628 / 1889 118 / 1889 335 / 335 Output Total 650 / 1250 100 / 1250 Balance - 18 / 639 335 / 335 Intake: Intake, Oral Amount 118 / 718 335 / 335 Intake, Total IV Amount 628 / 1171 Lactated Ringers 1000ML 1,000 578 / 1021 ml @ 50 mls/hr IV .Q20H [facility] Rx# :[id number] Piperacillin/Tazo 3.375 gm In 0 50 / 150 .9 % Sodium Chloride 50 ml @ 100 mls/hr IV Q6H [facility] Rx#: [id number] Output: Output, Urine Amount 650 / 1250 100 / 1250 Other: Number of Unmeasured Voids 3 1 Number of Bowel Movements 1 Weight 218 lb 2.006 oz Patient Weight 06/17/24 11:59 Weight 218 lb 2.006 oz I & O for Labs for Last 24 Hours: Intake & Output 06/14/24 06/15/24 06/16/24 06/17/24 11:59 11:59 11:59 11:59 Intake Total 208 / 208 1889 / 1889 335 / 335 Output Total 500 / 500 1250 / 1250 Balance -292 / -292 639 / 639 335 / 335 Weight 225 lb 218 lb 2.006 oz Microbiology Reports for the Last 24 Hours: Microbiology 06/14/24 11:56 Blood Blood Culture - Preliminary NO GROWTH AFTER 48 HOURS 06/14/24 11:50 Blood Blood Culture - Preliminary NO GROWTH AFTER 48 HOURS 06/14/24 11:02 Urine,Clean Catch Urine Culture - Final Head: Present normocephalic Neck: Present normal inspection Respiratory: Present normal respiratory effort; Absent accessory muscle use GI: Present soft and normal bowel sounds Rectal (female): Present deferred (female): Present deferred Assessment and Plan *Assessment and plan (1) Left lower quadrant pain: Status: Acute Category: Medical Code(s): R10.32 - Left lower quadrant pain (2) Diverticulitis large intestine: Status: Acute Qualifiers: Diverticulitis bleeding: without bleeding Diverticulitis complication: without perforation or abscess Qualified Code(s): K57.32 - Diverticulitis of large intestine without perforation or abscess without bleeding Category: Medical Code(s): K57.32 - Diverticulitis of large intestine without perforation or abscess without bleeding Plan We will continue her on antibiotics for now. As per Dr. Brooke we have increased her diet to full fluids. We will reassess discharge when appropriate.
[2024-06-16] MEDS: SIMETHICONE 80MG CHEWABLE TABLET 160 MG PO ×2 (15:45→21:14)
[2024-06-16 15:50] VITALS: BP 157/79; PULSE 72; RESP 16; TEMP 37.1; O2SAT 98
--- NOTE | 2024-06-16 16:08 | PC.NURSE ---
Upon reassessment patient appears to be uncomfortable. Patient reports that she has this feeling of fullness in her abdomen. She denies any pain. She reports that she feels like she hasn't used the bathroom very much today. Patient's PO intake has been minimal. Patient bowel sounds are hyperactive. Lung sounds remain clear throughout. Abdomen in non-tender and soft.
[2024-06-16] MEDS: LACTATED RINGERS 1000ML 500 ML 999 ML IV (16:29)
[2024-06-16] MEDS: LACTATED RINGERS 1000ML 1,000 ML 50 ML IV ×2 (17:01→21:14)
--- NOTE | 2024-06-16 19:23 | PC.NURSE ---
Pt visting with family at this time. Patient has her on Lexapro script and it is to be sent to pharmacy in AM. Hospital does not have Lexapro in stock. Pt reports she has been emotional today but thins its related to not having her lexapro or being able to keep it down prior to coming to hospital. Will allow time for patient to visit with family and come back for assessment at 1999. encouraged used of Call light for any needs. Patient report she is comfortable and temp of room is suitable.
[2024-06-16 19:59] VITALS: BP 150/84; PULSE 71; RESP 20; TEMP 37.2; O2SAT 97
[2024-06-16 20:00] VITALS: O2SAT 99
[2024-06-16] MEDS: FAMOTIDINE 20MG TABLET 20 MG PO (21:13)
--- NOTE | 2024-06-16 21:14 | PC.NURSE ---
Bed linens changed, reviewed with patient that she wmust be NPO at midnight per MD. Patient verbalized understanding
[2024-06-16] MEDS: CITALOPRAM 40MG TABLET 40 MG PO (21:15)
[2024-06-17] MEDS: ACETAMINOPHEN 325MG TAB 650 MG PO (03:35)
[2024-06-17] MEDS: PIPERACILLIN/TAZO 3.375 GM in 0.9 % SODIUM CHLORIDE 50 ML IV ×4 (03:35→21:21)
[2024-06-17] MEDS: KETOROLAC 10MG TABLET 10 MG PO (03:36)
[2024-06-17 03:51] VITALS: BP 164/67; PULSE 68; RESP 18; TEMP 36.8; O2SAT 100
--- NOTE | 2024-06-17 04:06 | PC.NURSE ---
Pt slept for 2-3 hours this shift, Patients output has improved with 900ml of urine out since 1900. Pt was able to have a BM and reports soft and somewhat liquid. Patient has been on a bowel rest and liquid diet for more than 3 days. Pt denies increasing pain. Pt is able to pass gas. Pt has been NPO since 0000. Repirations WNL, Skin warm and pink. Vitals WNL at baseline. IV site to left hand patent. Patient safety measures in place per protocol. Call light within reach
--- NOTE | 2024-06-17 04:20 | PC.NURSE ---
Pts lexapro scripts labeled with patients names and M# sticker and placed in bag and placed in patient meds in [facility] for pharmcacy to review in the morning. Patient aware and agreeable.
[2024-06-17 06:51] LABS: Basophils % 0.4 % (0.1-2.0); Eosinophils # 0.2 K/mm3 (0.0-0.4); Eosinophils % 1.7 % (0.1-12.0); Hematocrit 33.3 % (37.0-47.0); Hemoglobin 11.5 g/dL (12.2-16.2); Lymphocytes # 1.2 K/mm3 (0.7-4.5); Mean Corpuscular HGB Conc 34.5 g/dL (31.8-35.4); Mean Corpuscular Volume 90.1 fl (81-99); Mean Platelet Volume 11.7 fl (7.4-10.4); Monocytes # 0.5 K/mm3 (0.1-1.0); Monocytes % 5.2 % (1.7-9.3); Neutrophils # 7.6 K/mm3 (1.8-7.8); Neutrophils % 79.7 % (37.0-80.0); Platelet Count 153 K/mm3 (142-424); Red Cell Distribution Width 14.5 % (11.5-17.5); White Blood Count 9.5 K/mm3 (4.8-10.8)
[2024-06-17 07:08] LABS: Alanine Aminotransferase 59 U/L (12-78); Albumin Level 3.5 g/dl (3.5-5.0); Albumin/Globulin Ratio 1.1 (1.1-1.8); Alkaline Phosphatase 111 U/L (38-126); Anion Gap 16.7 mEq/L (5-15); Aspartate Amino Transferase 51 U/L (14-36); Bilirubin,Total 0.7 mg/dl (0.2-1.3); Blood Urea Nitrogen 9 mg/dl (7-17); Calcium 8.6 mg/dl (8.4-10.2); Carbon Dioxide 23 mmol/L (22.0-30.0); Chloride 107 mmol/L (98-107); Creatinine Clearance Estimated 121 mL/min (50-200); Estimated Glomerular Filt Rate 67 ml/min (>60); GFR (African American) 81 ML/MIN (>60); Globulin 3.3 g/dL (1.3-3.2); Glucose 95 mg/dl (74-100); Potassium 3.7 mmoL/L (3.5-5.1); Sodium 143 mmol/L (136-145); Total Protein,Serum 6.8 g/dl (6.3-8.2)
--- NOTE | 2024-06-17 08:23 | PC.NURSE ---
Dr. Brooke at bedside.
[2024-06-17 08:37] VITALS: BP 155/79; PULSE 64; RESP 15; TEMP 36.7; O2SAT 98
[2024-06-17 08:40] VITALS: O2SAT 98
--- NOTE | 2024-06-17 09:03 | P.PN_ITS ---
Subjective Narrative: Patient had developed some abdominal pressure with some bloating and generally ill feeling yesterday afternoon. Today she feels much better. No nausea. Exam Data for Last 24 hours Vital signs and Labs for Last 24 Hours: Temp Pulse Resp BP Pulse Ox O2 Del Method 98.1 F 64 15 155/79 H 98 Room Air 06/17/24 08:37 06/17/24 08:37 06/17/24 08:37 06/17/24 08:37 06/17/24 08:37 06/17/24 08:37 Laboratory Results - last 24 hr 06/17/24 06:33: WBC 9.5 D, RBC 3.70 L, Hgb 11.5 L, Hct 33.3 L, MCV 90.1, MCH 31.0, MCHC 34.5, RDW 14.5, Plt Count 153, MPV 11.7 H, Neut % (Auto) 79.7, Lymph % (Auto) 13.0, [place] % (Auto) 5.2, Eos % (Auto) 1.7, Baso % (Auto) 0.4, Neut # (Auto) 7.6, Lymph # (Auto) 1.2, [place] # (Auto) 0.5, Eos # (Auto) 0.2, Baso # (Auto) 0.0, Sodium 143, Potassium 3.7, Chloride 107, Carbon Dioxide 23, Anion G ap 16.7 H, BUN 9, Creatinine 0.90, Estimated Creat Clear 121, Estimated GFR 67, Est GFR ( Amer) 81, Glucose 95, Calcium 8.6, Total Bilirubin 0.7, AST 51 H, ALT 59, Alkaline Phosphatase 111, Total Protein 6.8, Albumin 3.5, Globulin 3.3 H, Albumin/Globulin Ratio 1.1 I & O for Last 24 hours: Intake & Output 06/14/24 06/15/24 06/16/24 06/17/24 11:59 11:59 11:59 11:59 Intake Total 208 / 208 1889 / 1889 335 / 335 Output Total 500 / 500 1250 / 1350 2350 / 2350 Balance -292 / -292 639 / 539 -2014 / Weight 225 lb 218 lb 2.006 oz Microbiology Reports for the Last 24 Hours: Microbiology 06/14/24 11:56 Blood Blood Culture - Preliminary NO GROWTH AFTER 48 HOURS 06/14/24 11:50 Blood Blood Culture - Preliminary NO GROWTH AFTER 48 HOURS 06/14/24 11:02 Urine,Clean Catch Urine Culture - Final *Routine Abdominal Exam Abdominal: Present soft Comments: Some left lower quadrant tenderness. Progress Note: A&P Assessment and plan (1) Left lower quadrant pain: Status: Acute Assessment and plan: Plan to restart clear liquids. Continue antibiotics. May ultimately be discharged on oral antibiotics. (2) Diverticulitis large intestine: Status: Acute
--- NOTE | 2024-06-17 10:16 | PC.NURSE ---
Dr. Hong at bedside.
--- NOTE | 2024-06-17 11:11 | EXP.ACUTE.PN ---
Subjective *Date: 06/17/24 *Time: 11:11 Interval history: She is doing well today. She denies any fever. Her white blood cell count is come down to 9.5. She had an episode yesterday of pressure and cramps and it was felt that she may be starting an ileus. She did however start feeling better later in the day and we put her back on full fluids. She is passing gas she says. Medical Exam Vital signs and Labs for Last 24 Hours: Vital Signs Temp Pulse Resp BP Pulse Ox O2 Del Method 06/17/24 09:26 Room Air 06/17/24 08:40 98 Room Air 06/17/24 08:37 98.1 F 64 15 155/79 H 98 Room Air 06/17/24 07:20 Room Air 06/17/24 05:57 Room Air 06/17/24 03:51 98.3 F 68 18 164/67 H 100 Room Air 06/17/24 03:45 Room Air 06/17/24 01:48 Room Air 06/17/24 00:13 Room Air 06/16/24 22:10 Room Air 06/16/24 20:00 99 Room Air 06/16/24 19:59 99.0 F 71 20 150/84 H 97 06/16/24 17:49 Room Air 06/16/24 15:50 98.7 F 72 16 157/79 H 98 Room Air 06/16/24 15:45 Room Air 06/16/24 13:13 Room Air 06/16/24 11:40 Room Air Intake and Output 06/16/24 06/17/24 06/17/24 19:59 03:59 11:59 Intake Total 335 / 335 Output Total 350 / 2450 1100 / 2450 1000 / 2450 Balance -15 / -2114 -1099 / -2114 -999 / -2114 Intake: Intake, Oral Amount 335 / 335 Output: Output, Urine Amount 350 / 2450 1100 / 2450 1000 / 2450 Other: Number of Voids 3 Number of Unmeasured Voids 1 Number of Bowel Movements 2 1 Weight 218 lb 2.006 oz Patient Weight 06/17/24 11:59 Weight 218 lb 2.006 oz Laboratory Results - last 24 hr 06/17/24 06:33: WBC 9.5 D, RBC 3.70 L, Hgb 11.5 L, Hct 33.3 L, MCV 90.1, MCH 31.0, MCHC 34.5, RDW 14.5, Plt Count 153, MPV 11.7 H, Neut % (Auto) 79.7, Lymph % (Auto) 13.0, [place] % (Auto) 5.2, Eos % (Auto) 1.7, Baso % (Auto) 0.4, Neut # (Auto) 7.6, Lymph # (Auto) 1.2, [place] # (Auto) 0.5, Eos # (Auto) 0.2, Baso # (Auto) 0.0, Sodium 143, Potassium 3.7, Chloride 107, Carbon Dioxide 23, Anion Gap 16.7 H, BUN 9, Creatinine 0.90, Estimated Creat Clear 121, Estimated GFR 67, Est GFR ( Amer) 81, Glucose 95, Calcium 8.6, Total Bilirubin 0.7, AST 51 H, ALT 59, Alkaline Phosphatase 111, Total Protein 6.8, Albumin 3.5, Globulin 3.3 H, Albumin/Globulin Ratio 1.1 I & O for Labs for Last 24 Hours: Intake & Output 06/14/24 06/15/24 06/16/24 06/17/24 11:59 11:59 11:59 11:59 Intake Total 208 / 208 1889 / 1889 335 / 335 Output Total 500 / 500 1250 / 1350 2450 / 2450 Balance -292 / -292 639 / 539 -2115 / -2115 Weight 225 lb 218 lb 2.006 oz Microbiology Reports for the Last 24 Hours: Microbiology 06/14/24 11:56 Blood Blood Culture - Preliminary NO GROWTH AFTER 48 HOURS 06/14/24 11:50 Blood Blood Culture - Preliminary NO GROWTH AFTER 48 HOURS 06/14/24 11:02 Urine,Clean Catch Urine Culture - Final Head: Present normocephalic Neck: Present normal inspection Respiratory: Present normal respiratory effort; Absent accessory muscle use Cardiac: Present Reg Rate and Rhythm GI: Present soft, tenderness (Mild tenderness in the left lower quadrant) and normal bowel sounds; Absent distention Rectal (female): Present deferred (female): Present deferred Assessment and Plan *Assessment and plan (1) Left lower quadrant pain: Status: Acute Category: Medical Code(s): R10.32 - Left lower quadrant pain (2) Diverticulitis large intestine: Status: Acute Qualifiers: Diverticulitis bleeding: without bleeding Diverticulitis complication: without perforation or abscess Qualified Code(s): K57.32 - Diverticulitis of large intestine without perforation or abscess without bleeding Category: Medical Code(s): K57.32 - Diverticulitis of large intestine without perforation or abscess without bleeding Plan She is doing much better today. She denies any fever or chills. Her white blood cell count has come down to normal. We will continue with her IV antibiotics for now. We will continue with clear fluids. She is being followed by Dr. Brooke as well. We will likely perform a repeat CT scan prior to discharge. She will likely go home with oral antibiotics as well.
[2024-06-17] MEDS: SIMETHICONE 80MG CHEWABLE TABLET 160 MG PO (14:39)
[2024-06-17 16:30] VITALS: BP 165/70; PULSE 71; RESP 18; TEMP 38.6
[2024-06-17] MEDS: ACETAMINOPHEN 500MG TAB 1000 MG PO (17:07)
--- NOTE | 2024-06-17 17:13 | PC.NURSE ---
Patient is alert and oriented. Patient recently has been febrile this shift. Patient bowel sounds are active/hyperactive at times. Patient has not had any pain thus far this shift. Patient lung sounds are clear throughout. Patient is tolerating PO intake well. No acute events thus far.
[2024-06-17 17:37] VITALS: TEMP 36.9
[2024-06-17] MEDS: LACTATED RINGERS 1000ML 1,000 ML 50 ML IV (18:24)
[2024-06-17 19:55] VITALS: BP 151/76; PULSE 59; RESP 19; TEMP 36.9; O2SAT 98
[2024-06-17 20:09] LABS: Trichomonas Vaginalis, NAA Negative (Negative)
[2024-06-17 21:08] LABS: Neisseria gonorrhoeae, NAA Negative (Negative)
--- NOTE | 2024-06-17 21:10 | PC.NURSE ---
IV tubing changed at this time and labeled accordingly. Discussed with patient about prevention of an ileus due to decreased activity and food intake. Discussed frequent ambulation and could chew gum as forms of prevention. Patient verbalizes understanding.
[2024-06-17] MEDS: FAMOTIDINE 20MG TABLET 20 MG PO (21:23)
[2024-06-18 03:13] VITALS: BP 158/75; PULSE 72; RESP 19; TEMP 36.9; O2SAT 97
[2024-06-18] MEDS: ACETAMINOPHEN 500MG TAB 1000 MG PO ×3 (03:14→15:31)
[2024-06-18] MEDS: PIPERACILLIN/TAZO 3.375 GM in 0.9 % SODIUM CHLORIDE 50 ML IV ×3 (03:14→15:31)
--- NOTE | 2024-06-18 03:14 | PC.NURSE ---
Patient resting with eyes closed and awoke once RN entered room. Repositioned self to [place]. Alert and oriented x4. Heart sounds auscultated over left apex at regular rate and rhythm. Lung sounds auscultated clear bilaterally and throughout. Bowel sounds present and normoactive in all four quadrants with tenderness remaining upon palpation to LLQ. Patient voiding well and denies pain with voids, but has pain when passing bowel movement. IV remains patent and intact. Patient denies pain at this time. Skin is pink and intact, but patient reports diaphoretic and that she normally is a hot sleeper. Scheduled Tylenol given at this time as an effort to allow patient to rest and patient agreeable. Ice water refreshed for patient and trash removed from room.
[2024-06-18 03:15] VITALS: BMI 34.6
--- NOTE | 2024-06-18 06:58 | PC.NURSE ---
Breakfast tray dropped off for patient
--- NOTE | 2024-06-18 07:25 | PC.NURSE ---
0723- Dr. Stratton is in the department and gave verbal orders to advance the pts diet to full liquids.
--- NOTE | 2024-06-18 07:34 | EXP.SURG.PN ---
Subjective Patient reports: feels better Exam Data for Last 24 hours Vital signs and Labs for Last 24 Hours: Temp Pulse Resp BP Pulse Ox O2 Del Method 98.4 F 72 19 158/75 H 97 Room Air 06/18/24 03:13 06/18/24 03:13 06/18/24 03:13 06/18/24 03:13 06/18/24 03:13 06/18/24 06:01 Laboratory Results - last 24 hr 06/14/24 11:02: Genital T.vaginalis ASHKAN Negative, C. trachomatis (ASHKAN) Negative, N. gonorrhoeae (ASHKAN) Negative I & O for Last 24 hours: Intake & Output 06/15/24 06/16/24 06/17/24 06/18/24 11:59 11:59 11:59 11:59 Intake Total 208 / 208 1889 / 1889 453 / 453 1249 / 1249 Output Total 500 / 500 1250 / 1350 2600 / 2600 2450 / 2450 Balance -292 / -292 639 / 539 -2147 / -2147 -1201 / -1201 Weight 218 lb 2.006 oz 220 lb 8 oz Constitutional Constitutional: no acute distress *Routine Respiratory Exam Respiratory: Absent respiratory distress *Routine Cardiovascular Exam Cardiovascular: Absent tachycardia *Routine Abdominal Exam Abdominal: Present soft Comments: Persistent mild to moderate tenderness in the lower abdomen (left/central) Progress Note: A&P Assessment and plan (1) Diverticulitis large intestine: Status: Acute Assessment and plan: Overall continuing to improve. Full liquid diet ordered Likely discharge home soon with plans for completion of course of antibiotics (2) Left lower quadrant pain: Status: Acute
[2024-06-18 08:25] VITALS: BP 153/77; PULSE 66; RESP 18; TEMP 36.8; O2SAT 97
--- NOTE | 2024-06-18 09:51 | EXP.ACUTE.PN ---
Subjective *Date: 06/18/24 *Time: 09:51 Interval history: She is doing a lot better today. She denies any fever or chills. She did have an episode of fever up to 101 ?F yesterday. The fever defervesced quickly and she has been afebrile since. Her pain is improved and she says she only has discomfort in the left lower quadrant when we push on her abdomen. She has been tolerating a full liquid diet. She is being followed by general surgery as well. Medical Exam Vital signs and Labs for Last 24 Hours: Vital Signs Temp Pulse Resp BP Pulse Ox O2 Del Method 06/18/24 09:00 Room Air 06/18/24 08:25 Room Air 06/18/24 08:25 98.2 F 66 18 153/77 H 97 Room Air 06/18/24 08:25 97 Room Air 06/18/24 07:00 Room Air 06/18/24 06:01 Room Air 06/18/24 05:11 Room Air 06/18/24 03:14 Room Air 06/18/24 03:13 98.4 F 72 19 158/75 H 97 06/18/24 01:02 Room Air 06/17/24 23:18 Room Air 06/17/24 22:33 Room Air 06/17/24 21:21 Room Air 06/17/24 20:32 Room Air 06/17/24 20:32 Room Air 06/17/24 19:55 98.4 F 59 L 19 151/76 H 98 06/17/24 19:42 Room Air 06/17/24 17:37 98.4 F 06/17/24 17:09 Room Air 06/17/24 16:30 101.5 F H 71 18 165/70 H 06/17/24 15:00 Room Air 06/17/24 13:31 Room Air 06/17/24 11:43 Room Air Intake and Output 06/17/24 06/18/24 06/18/24 19:59 03:59 11:59 Intake Total 236 / 1489 1013 / 1489 240 / 1489 Output Total 1300 / 2650 1000 / 2650 350 / 2650 Balance -1064 / -1161 13 / -1161 -110 / -1161 Intake: Intake, Oral Amount 236 / 476 240 / 476 Intake, Total IV Amount 1013 / 1013 Lactated Ringers 1000ML 1,000 971 / 971 ml @ 25 mls/hr IV .Q25H [facility] Rx# :[id number] Piperacillin/Tazo 3.375 gm In 0 42 / 42 .9 % Sodium Chloride 50 ml @ 100 mls/hr IV Q6H CARLOS Rx#: [id number] Output: Output, Urine Amount 1300 / 2650 1000 / 2650 350 / 2650 Other: Number of Unmeasured Voids 3 Number of Bowel Movements 2 1 Weight 220 lb 8 oz Patient Weight 06/18/24 11:59 Weight 220 lb 8 oz Laboratory Results - last 24 hr 06/14/24 11:02: Genital T.vaginalis ASHKAN Negative, C. trachomatis (ASHKAN) Negative, N. gonorrhoeae (ASHKAN) Negative I & O for Labs for Last 24 Hours: Intake & Output 06/15/24 06/16/24 06/17/24 06/18/24 11:59 11:59 11:59 11:59 Intake Total 208 / 208 1889 / 1889 453 / 453 1489 / 1489 Output Total 500 / 500 1250 / 1350 2600 / 2600 2650 / 2650 Balance -292 / -292 639 / 539 -2147 / -2147 -1161 / -1161 Weight 218 lb 2.006 oz 220 lb 8 oz Head: Present normocephalic Neck: Present normal inspection Respiratory: Present normal respiratory effort; Absent accessory muscle use Cardiac: Present Reg Rate and Rhythm GI: Present soft and normal bowel sounds; Absent distention, guarding, rebound or rigidity Rectal (female): Present deferred (female): Present deferred Assessment and Plan *Assessment and plan (1) Left lower quadrant pain: Status: Acute Category: Medical Code(s): R10.32 - Left lower quadrant pain (2) Diverticulitis large intestine: Status: Acute Qualifiers: Diverticulitis bleeding: without bleeding Diverticulitis complication: without perforation or abscess Qualified Code(s): K57.32 - Diverticulitis of large intestine without perforation or abscess without bleeding Category: Medical Code(s): K57.32 - Diverticulitis of large intestine without perforation or abscess without bleeding Plan As per Dr. Stratton we will continue to observe her for the day. She may be a candidate to be discharged home tomorrow with oral antibiotics. Will see how she does throughout the rest the day.
--- NOTE | 2024-06-18 10:29 | EXP.PHA.PN ---
Subjective *Date: 06/18/24 *Time: 10:29 Medical Exam Vital signs and Labs for Last 24 Hours: Vital Signs Temp Pulse Resp BP Pulse Ox O2 Del Method 06/18/24 09:00 Room Air 06/18/24 08:25 Room Air 06/18/24 08:25 98.2 F 66 18 153/77 H 97 Room Air 06/18/24 08:25 97 Room Air 06/18/24 07:00 Room Air 06/18/24 06:01 Room Air 06/18/24 05:11 Room Air 06/18/24 03:14 Room Air 06/18/24 03:13 98.4 F 72 19 158/75 H 97 06/18/24 01:02 Room Air 06/17/24 23:18 Room Air 06/17/24 22:33 Room Air 06/17/24 21:21 Room Air 06/17/24 20:32 Room Air 06/17/24 20:32 Room Air 06/17/24 19:55 98.4 F 59 L 19 151/76 H 98 06/17/24 19:42 Room Air 06/17/24 17:37 98.4 F 06/17/24 17:09 Room Air 06/17/24 16:30 101.5 F H 71 18 165/70 H 06/17/24 15:00 Room Air 06/17/24 13:31 Room Air 06/17/24 11:43 Room Air Intake and Output 06/17/24 06/18/24 06/18/24 23:59 07:59 15:59 Intake Total 699 / 1053 314 / 554 240 / 554 Output Total 1600 / 3650 850 / 1050 200 / 1050 Balance -901 / -2597 -536 / -496 40 / -496 Intake: Intake, Oral Amount 240 / 240 Intake, Total IV Amount 699 / 699 314 / 314 Lactated Ringers 1000ML 1,000 699 / 699 272 / 272 ml @ 25 mls/hr IV .Q25H [facility] Rx# :[id number] Piperacillin/Tazo 3.375 gm In 0 42 / 42 .9 % Sodium Chloride 50 ml @ 100 mls/hr IV Q6H CARLOS Rx#: [id number] Output: Output, Urine Amount 1600 / 3650 850 / 1050 200 / 1050 Other: Number of Unmeasured Voids 3 Number of Bowel Movements 2 1 Weight 100.017 kg Patient Weight 06/18/24 23:59 Weight 100.017 kg Laboratory Results - last 24 hr 06/14/24 11:02: Genital T.vaginalis ASHKAN Negative, C. trachomatis (ASHKAN) Negative, N. gonorrhoeae (ASHKAN) Negative I & O for Labs for Last 24 Hours: Intake & Output 06/15/24 06/16/24 06/17/24 06/18/24 23:59 23:59 23:59 23:59 Intake Total 1597 / 1597 835 / 835 1053 / 1053 554 / 554 Output Total 1000 / 1000 1300 / 1300 3650 / 3650 1050 / 1050 Balance 597 / 597 -465 / -465 -2597 / -2597 -496 / -496 Weight 98.94 kg 100.017 kg The patient's infection will respond to the chosen ABx?: Yes Is the patient receiving the right drug, dose, and route?: Yes Could a more targeted ABx be ordered?: No (WBC DECREASED, BLD CX - X2, URINE MIXED, AFEBRILE.)
[2024-06-18] MEDS: LACTATED RINGERS 1000ML 1,000 ML 50 ML IV (15:20)
[2024-06-18 15:50] VITALS: BP 152/90; PULSE 64; RESP 16; TEMP 36.9; O2SAT 100
--- NOTE | 2024-06-18 15:50 | PC.NURSE ---
Pt has rested well this shift. Pts BLT lungs CTA, Bowel sounds are present in all 4 quadrants. IV is patent. Pt has been absent of any pain or N/V/D. Pt denies any headache or SOA. Pt has had x2 solid BM's this shift. VSS, call light within reach
[2024-06-18 20:34] VITALS: BP 152/78; PULSE 74; RESP 17; TEMP 36.9; O2SAT 99
[2024-06-18] MEDS: AMOXICILLIN/POT CLAVULAN 500MG TABLET 1 EACH PO (20:39)
[2024-06-18] MEDS: FAMOTIDINE 20MG TABLET 20 MG PO (20:39)
[2024-06-19 04:37] VITALS: BP 145/82; PULSE 66; RESP 16; TEMP 36.8; O2SAT 100
--- NOTE | 2024-06-19 04:37 | PC.NURSE ---
Patient resting with eyes closed once RN entered room and awoke to verbal stimuli. Alert and oriented x4. Denies pain and denies need for any medication at this time. Heart sounds auscultated at normal rate and rhythm over left apex. Lung sounds clear bilaterally and throughout. Bowel sounds present and normoactive in all 4 quadrants. Patient voiding adequately. Has had a BM this shift and tolerated foods well. Skin remains pink, dry, and intact. IV remains patent with LR infusing at 50 mL/hr. Trash emptied from room at this time. Patient denies any further needs.
[2024-06-19 04:54] VITALS: BMI 34.3
[2024-06-19 07:32] VITALS: BP 162/78; PULSE 71; RESP 18; TEMP 36.8; O2SAT 97
--- NOTE | 2024-06-19 08:32 | EXP.SURG.PN ---
Subjective Narrative: Patient feels well with no complaints. Denies abdominal pain. Tolerating full liquid diet. Having bowel movements. No additional fevers. Exam Data for Last 24 hours Vital signs and Labs for Last 24 Hours: Temp Pulse Resp BP Pulse Ox O2 Del Method 98.2 F 71 18 162/78 H 97 Room Air 06/19/24 07:32 06/19/24 07:32 06/19/24 07:32 06/19/24 07:32 06/19/24 07:32 06/19/24 07:32 I & O for Last 24 hours: Intake & Output 06/16/24 06/17/24 06/18/24 06/19/24 11:59 11:59 11:59 11:59 Intake Total 1889 / 1889 453 / 453 1489 / 1489 1777 / 1777 Output Total 1250 / 1350 2600 / 2600 2650 / 3050 2050 / 205 Balance 639 / 539 -2147 / -2147 -1161 / -1561 -273 / -273 Weight 218 lb 2.006 oz 220 lb 8 oz 218 lb 12.8 oz Microbiology Reports for the Last 24 Hours: Microbiology 06/14/24 11:56 Blood Blood Culture - Preliminary NO GROWTH AFTER 4 DAYS 06/14/24 11:50 Blood Blood Culture - Preliminary NO GROWTH AFTER 4 DAYS *Routine Abdominal Exam Abdominal: Present soft; Absent tenderness Progress Note: A&P Assessment and plan (1) Left lower quadrant pain: Status: Acute (2) Diverticulitis large intestine: Status: Acute Assessment and plan: May be reasonable for discharge on oral antibiotics. Recommend limiting to a low residue/fiber restricted diet. Likely plan for follow-up outpatient CT scan next week.
--- NOTE | 2024-06-19 08:47 | EXP.DC.SUM ---
General Admission date:: 06/14/24 Discharge date: 06/19/24 HPI HPI HPI: Cathleen is feeling well this morning. Denies pain. Tolerating full liquid diet. She is having bowel movements. Denies urinary complaints. Denies fever/chills, chest pain and shortness of breath. Ambulating well ad derek. Hospital Course Hospital Course Hospital Course: Ms Cathleen Ford is a 48-year-old with past medical history of GERD who presented to the emergency department with nausea vomiting and left lower quadrant pain. Pain was 10 out of 10 left lower quadrant similar to the last time she had diverticulitis. Her last BM was 24 hours prior to admission. No blood in stool or urine. No dysuria. She reported vomiting 8 times in the 24 hours nonbloody nonbilious prior to admission. She has not taken any [id number] nausea/vomiting medicine. She admits to decreased urination. No fever or chills. No known sick contacts no chest pain shortness of breath cough congestion. She has a ParaGard IUD and ultrasound showed the IUD in the correct position. Ultrasound showed heterogenous area in the left adnexa that could be her left ovary with inflammation. There was no obvious collection of pus. There was trace fluid in the cul-de-sac. She says that her symptoms are similar to when she had diverticulitis in the past. She had some diaphoresis when she arrived on the floor with a temperature just below 100 ?F. She is now feeling better and we will have given her Tylenol and Toradol scheduled. She says that she has pain in the left lower quadrant over the sigmoid colon similar to where she had pain in the past with diverticulitis. She was admitted to [facility] for possible ovarian etiology of symptoms. General surgery was consulted for possible diverticulitis. She was put on bowel rest and started on IV antibiotics. She continue to improve daily. Hospital day # 5 she was feeling well. Vital signs stable, afebrile. Abdomen soft, nontender with good bowel sounds. She denied pain. Tolerating full liquid diet and having small BM. She was discharged home on hospital day # 5 with prescription for 7 days of PO Augmentin. Follow-up outpatient CT scan of abdomen/pelvis ordered for next week. She was given instructions for low residue/low fiber diet as well as instructions to follow-up in the office with Dr. Brooke and Dr. Hong in 2 weeks or sooner if needed. Exam Data for Last 24 hours Vital signs and Labs for Last 24 Hours: Temp Pulse Resp BP Pulse Ox O2 Del Method 98.2 F 71 18 162/78 H 97 Room Air 06/19/24 07:32 06/19/24 07:32 06/19/24 07:32 06/19/24 07:32 06/19/24 07:32 06/19/24 07:32 I & O for Last 24 hours: Intake & Output 06/16/24 06/17/24 06/18/24 06/19/24 23:59 23:59 23:59 23:59 Intake Total 835 / 835 1053 / 1053 1924 / 1924 407 / 407 Output Total 1300 / 1300 3650 / 3650 2400 / 2400 700 / 700 Balance -465 / -465 -2597 / -2597 -476 / -476 -293 / -293 Weight 218 lb 2.006 oz 220 lb 8 oz 218 lb 12.8 oz Microbiology Reports for the Last 24 Hours: Microbiology 06/14/24 11:56 Blood Blood Culture - Preliminary NO GROWTH AFTER 4 DAYS 06/14/24 11:50 Blood Blood Culture - Preliminary NO GROWTH AFTER 4 DAYS Constitutional Constitutional: no acute distress and cooperative *Routine HEENT Exam Head: Present normocephalic and atraumatic Eye: Absent conjunctivae pink ENT: Present mucous membranes moist *Routine Neck Exam Neck: Present full ROM *Routine Respiratory Exam Respiratory: Present CTA bilaterally and normal respiratory effort *Routine Cardiovascular Exam Cardiovascular: Present RRR *Routine Abdominal Exam Abdominal: Present soft, normoactive bowel sounds and obese; Absent tenderness, distended or guarding *Routine Rectal Exam Patient deferred: visual exam *Routine Exam Patient deferred: external exam *Routine Extremities Exam Extremities: Present full ROM; Absent edema or calf tenderness *Routine Neurological Exam Neurological: Present alert, moving all extremities and normal speech Routine Psychiatric Exam Psychiatric: Present normal affect and cooperative Results Data Completed and Pending Labs on day of discharge: Preliminary micro results at discharge 06/14/24 11:56 Blood Culture - Preliminary Blood NO GROWTH AFTER 4 DAYS 06/14/24 11:50 Blood Culture - Preliminary Blood NO GROWTH AFTER 4 DAYS DS: Diagnosis Discharge Diagnosis (1) Left lower quadrant pain: Status: Acute Code(s): R10.32 - Left lower quadrant pain (2) Diverticulitis large intestine: Status: Acute Code(s): K57.32 - Diverticulitis of large intestine without perforation or abscess without bleeding Qualifiers: Diverticulitis bleeding: without bleeding Diverticulitis complication: without perforation or abscess Qualified Code(s): K57.32 - Diverticulitis of large intestine without perforation or abscess without bleeding Meds Home Medications and Allergies Home Medications ?Medication ?Instructions ?Recorded ?Confirmed ?Type escitalopram oxalate 20 mg tablet 20 mg PO DAILY 09/03/23 06/14/24 History meclizine 25 mg tablet 25 mg PO Q8HP PRN Vertigo 09/03/23 06/15/24 History pantoprazole 40 mg tablet,delayed 40 mg PO DAILY 09/03/23 06/14/24 History release amoxicillin 500 mg-potassium 1 tab PO Q8HP 7 days #21 tabs 06/19/24 Rx clavulanate 125 mg tablet New Prescriptions to Start Prescriptions: amoxicillin-pot clavulanate Malou Trevizo Allergies Allergy/AdvReac Type Severity Reaction Status Date / Time Penicillins Allergy Other Verified 06/14/24 19:21 Discharge Plan Disposition Patient Disposition: Home, Self-Care Discharge Order Discharge Orders: Discharge Order (Routine); Ordered 06/19/24 Ordered By: Malou Trevizo Follow up Plan Follow up with: Isidro Brooke MD [Staff Physician] - 2 weeks Yakov Hong MD [Staff Physician] - 2 weeks Prescriptions/Medication Reconciliation: New amoxicillin-pot clavulanate 500-125 mg Tablet 1 tab PO Q8HP 7 Days Qty: 21 0RF Continued meclizine 25 mg tablet 25 mg PO Q8HP PRN (Reason: Vertigo) pantoprazole 40 mg tablet,delayed release (DR/EC) 40 mg PO DAILY escitalopram oxalate 20 mg tablet 20 mg PO DAILY Problem Reconciliation Problems Reviewed?: Yes Patient Discharge Instructions ACTIVITY: Ambulate as tolerated DIET: other Additional Instructions: Limit diet to low residue/low fiber diet. Patient Instructions: Low-Fiber/Low-Residue Diet Print Language: Palestinian Providers Primary Care Provider: Maggy Thomas Admit Provider: Yakov Hong Attending Provider: Yakov Hong
[2024-06-19] MEDS: AMOXICILLIN/POT CLAVULAN 500MG TABLET 1 EACH PO (09:30)
--- NOTE | 2024-06-19 10:01 | PC.NURSE ---
0940 Discharge education provided to pt, questions encouraged and answered. Pt is aware of scheduled 2 week follow-up appointments and that scheduling will be calling her to schedule a CT scan next week.
== END 2024-06-19 10:05 | disposition home or self-care (01) | DRG 392 ==
LOC: ER 16:21 → OB 18:56
PROVIDERS: Obstetrics & Gynecology; Student in an Organized Health Care Education/Training Program; Admitting Provider Nurse Practitioner Obstetrics & Gynecology; Emergency Provider Emergency Medicine; PCP Physician Assistant; Visit Provider Nurse Practitioner Obstetrics & Gynecology
DX: K57.32 Diverticulitis of large intestine without perforation or abscess without bleeding (principal); N70.93 Salpingitis and oophoritis, unspecified; R10.32 Left lower quadrant pain
CPT/HCPCS: 36415; 74177; 76830; 80053; 81001; 83605; 83690; 84703; 85007; 85025; 86803; 87040; 87086; 87389; 87491; 87591; 87636; 87661; 93005; 99285; J1171; J2270; J2405; J2543; J7030; J7120; Q9967